=== PATIENT | female | born 1970 | race Caucasian/White ===

== ENCOUNTER 2020-05-31 14:00 | Outpatient (CLI) | payer BC, OTHER, SELFPAY ==
--- NOTE | 2020-05-31 14:15 | USCV_ITS ---
Sarah Monroy Age: 50 Gender: F : 1970 Exam Date: 05/31/2020 14:23 Ordering Phys: Ela Rivera MD ([email or web address]) Technologist: Erlinda Norton Exam Location: [facility] – [place] Indication: AORTIC STENOSIS BP: 114 / 47 HR: 72 Rhythm: Sinus Technical Quality: Adequate MEASUREMENTS (Male / Female) Normal Values 2D ECHO LV Diastolic Diameter PLAX 4.2 cm 4.2 - 5.9 / 3.9 - 5.3 cm LV Systolic Diameter PLAX 2.0 cm LV Chamber Size 4.2 cm IVS Diastolic Thickness 1.2 cm 0.6 - 1.0 / 0.6 - 0.9 cm IVS Systolic Thickness 1.4 cm LVPW Diastolic Thickness 2.0 cm 0.6 - 1.0 / 0.6 - 0.9 cm LVPW Systolic Thickness 2.5 cm RV Chamber Size 3.1 cm LVOT Diameter 2.1 cm LV Ejection Fraction 2D Teich 84.2 % LV Ejection Fraction MOD 2C 56.6 % LV Ejection Fraction 2C AL 55.8 % LA Diameter 4.0 cm LA Width 3.5 cm LA Height 5.0 cm RA Width 3.3 cm RA Height 3.9 cm Aorta at Sinotubular Diameter 2.3 cm M-MODE LV Diastolic Diameter MM 4.9 cm 4.2 - 5.9 / 3.9 - 5.3 cm LV Systolic Diameter MM 2.1 cm LV Ejection Fraction MM Teich 86.9 % IVS Diastolic Thickness MM 0.8 cm 0.6 - 1.0 / 0.6 - 0.9 cm IVS Systolic Thickness MM 1.4 cm LVPW Diastolic Thickness MM 1.3 cm 0.6 - 1.0 / 0.6 - 0.9 cm LVPW Systolic Thickness MM 2.0 cm Aortic Annulus Diameter 2.6 cm LA Ao Ratio MM 2.0 MV E Point Septal Separation 0.6 cm DOPPLER AV Peak Velocity 369.3 cm/s LVOT Peak Velocity 178.3 cm/s AV Area Cont Eq vti 1.6 cm squared AV Area Cont Eq pk 1.6 cm squared MV Area PHT 3.9 cm squared Mitral E to A Ratio 2.1 MV E' Velocity 83.5 cm/s Mitral E to MV E' Ratio 10.5 Mitral E to LV E' Lateral Ratio 8.9 Mitral E to LV E' Septal Ratio 12.8 TR Peak Velocity 259.5 cm/s TR Peak Gradient 26.9 mmHg TV Peak E Velocity 85.0 cm/s PV Peak Velocity 109.0 cm/s RV Acceleration Time 0.2 s RV Ejection Time 0.4 s RV AcT/ET 0.5 FINDINGS Left Ventricle Normal left ventricular cavity size. Normal left ventricular systolic function. Left ventricular ejection fraction is estimated at 70%. No regional wall motion abnormalities. Normal diastolic function. Right Ventricle Normal right ventricular size and systolic function. Right ventricular systolic pressure 24 mmHg. Right Atrium Normal right atrial size. Right atrial pressure estimated at 3 mmHg. Left Atrium Normal left atrial size. Mitral Valve Structurally normal mitral valve. No mitral valve stenosis. Trace mitral valve regurgitation. Aortic Valve Aortic valve not well visualized. Thickened aortic valve. There seems to be some thickening in aortic root in valvular and subvalvular area (possibly related to previous repair). Mild aortic stenosis with peak velocity of 3.4 m/s, peak gradient 45 mmHg, mean gradient 22 mmHg. Mild to moderate aortic valve regurgitation. Tricuspid Valve Structurally normal tricuspid valve. Trace to mild tricuspid valve regurgitation. Pulmonic Valve Pulmonic valve not well visualized. Pericardium No pericardial effusion. Normal-sized inferior vena cava. Aorta Normal-sized aortic root. CONCLUSIONS 1. Normal left ventricular cavity size and systolic function. Left ventricular ejection fraction is estimated at 70%. No regional wall motion abnormalities. Normal diastolic function. 2. There seems to be some thickening in aortic root in valvular and subvalvular area (possibly related to previous repair). Mild aortic stenosis with peak velocity of 3.4 m/s, peak gradient 45 mmHg, mean gradient 22 mmHg. Mild to moderate aortic valve regurgitation. 3. Pulmonary artery pressure estimated at 24 mmHg. 4. When compared to previous echocardiogram dated 10 June 2019, there has been no significant change. Ela Rivera MD (Electronically Signed) Final Date: 02 June 2020 10:10 S
== END 2020-05-31 14:01 | disposition home or self-care (01) ==
LOC: RAD 14:05
PROVIDERS: PCP Electrodiagnostic Medicine; Visit Provider Internal Medicine Cardiovascular Disease
DX: I35.0 Nonrheumatic aortic (valve) stenosis (principal); I35.1 Nonrheumatic aortic (valve) insufficiency
CPT/HCPCS: 93306

== ENCOUNTER 2021-01-08 08:46 | Outpatient (CLI) | payer BC, SELFPAY ==
--- NOTE | 2021-01-08 10:51 | CT_ITS ---
WS: [id number] CT THORACIC SPINE TECHNIQUE: Contrast-enhanced CT of the thoracic spine with coronal and sagittal reformatted images. CLINICAL INFORMATION: POSTLAMINECTOMY SYNDROME COMPARISON: None. DLP: 2413.[address] scans at [facility] use at least one of these dose optimization techniques: automat ed exposure control; mA and/or kV adjustment per patient size (includes targeted exams where dose is matched to clinical indication); or iterative reconstruction. FINDINGS: Fluoroscopic images demonstrate prior postoperative changes pedicle screw fixation with interbody fus ion and interconnecting rods L4-S1. Hardware appears intact. Prior postoperative changes right sacroi liac fusion. Mild lumbar curve convex right. Prior sternotomy. Mild thoracic curve convex left. Mild thoracic kyphosis. No instability on flexion-extension. A few Schmorl's nodes in the mid thoracic spine with minimal chronic anterior wedging. No acute appea ring compression fractures. No high-grade central canal stenosis. Moderate facet arthropathy in the l ower thoracic spine. No significant disc extrusions or protrusions. No high-grade foraminal narrowing . Partially visualized lungs are well aerated. Partially visualized aneurysmal ascending thoracic aorta measuring 4.5 CM. Small esophageal hiatal hernia. Adrenal glands are normal. CT/CT thoracic spine w con [id number] IMPRESSION: 1. Mild thoracic curve. Mild thoracic kyphosis. No acute compression fractures . 2. A few Schmorl's nodes in the mid thoracic spine with minimal chronic anteri or wedging. 3. No high-grade central canal stenosis. 4. No significant disc extrusions or protrusions. 5. Aneurysmal partially visualized ascending thoracic aorta measuring 4.5 CM. This can be further evaluated with CTA chest.
--- NOTE | 2021-01-08 10:51 | IR_ITS ---
WS: [id number] MYELOGRAM LUMBAR AND THORACIC SPINE Fluoroscopic guided lumbar and thoracic myelogram CLINICAL INFORMATION: POSTLAMINECTOMY SYNDROME COMPARISON: None. TECHNIQUE: The procedure, including risks, benefits, and complications, were discussed with the patie nt who agreed to proceed. A timeout was performed to confirm correct patient, procedure, and site. Using sterile technique, the patient was prepped and draped in the usual sterile fashion. After admin istration of local anesthesia using 1% preservative-free lidocaine and using fluoroscopic guidance, a 22-gauge spinal needle was advanced into the subarachnoid space at the L2-3 level. Subsequently 13 c c of Omnipaque 240 was administered into the thecal sac. The needle was removed and hemostasis was ac hieved. Subsequently the table was tilted down and contrast flowed freely into the cervical spine. Sp ot fluoroscopic images were obtained. FLUOROSCOPIC TIME: 2.[address] myelogram report for additional detail. IR/IR myelogram spine thorac/lumb IMPRESSION: 1. Uncomplicated lumbar and thoracic myelogram. 2. Please see CT report for anatomic detail.
--- NOTE | 2021-01-08 10:51 | CT_ITS ---
WS: [id number] CT LUMBAR MYELOGRAM TECHNIQUE: CT lumbar myelogram with coronal and sagittal reformatted images. CLINICAL INFORMATION: POSTLAMINECTOMY SYNDROME COMPARISON: None. DLP: 2230.[address] scans at [facility] use at least one of these dose optimization techniques: automat ed exposure control; mA and/or kV adjustment per patient size (includes targeted exams where dose is matched to clinical indication); or iterative reconstruction. FINDINGS: Mild lumbar curve convex right. Pedicle screw fixation L4-S1 with interbody fusion grafts. Interconne cting rods. Prior postoperative changes right sacroiliac joint bony fusion L1-L2: Mild annular bulging. Spinal canal and foramen are patent. L2-L3: Mild annular bulging with slight effacement of ventral thecal sac and mild central canal steno sis. Slight narrowing of the left subarticular recess with mild left foraminal narrowing. Moderate fa cet arthropathy. L3-L4: Tiny right foraminal protrusion with mild right foraminal narrowing. Spinal canal and foramen are patent. Moderate facet arthropathy. L4-L5: Postoperative changes pedicle screw fixation with interbody fusion. Moderate facet arthropathy . Spinal canal and foramen are patent. L5-S1: Postoperative changes pedicle screw fixation. Interbody fusion. Spinal canal and foramen are p atent. Visualized pelvic bony structures: Normal. Paravertebral soft tissues: Normal. CT/CT lumbar spine w con [id number] IMPRESSION: 1. Pedicle screw fixation L4-S1 with interbody fusion grafts. No evidence of h ardware loosening. 2. Mild annular bulging L2-3 with mild central canal stenosis and slight narro wing of the left subarticular recess. Mild left foraminal narrowing. 3. Small right foraminal protrusion L3-4 with mild right foraminal narrowing. 4. Prior postoperative changes right sacroiliac joint effusion.
[2021-01-08] MEDS: iohexol 240 mg/mL 50 mL Btl INTRA-ARTI (12:25)
== END 2021-01-08 08:47 | disposition home or self-care (01) ==
LOC: RAD 08:50
PROVIDERS: PCP Electrodiagnostic Medicine; Visit Provider Anesthesiology Pain Medicine
DX: M51.44 Schmorl's nodes, thoracic region (principal); M40.294 Other kyphosis, thoracic region; M51.26 Other intervertebral disc displacement, lumbar region; M48.061 Spinal stenosis, lumbar region without neurogenic claudication; M25.48 Effusion, other site
CPT/HCPCS: 62305; 72120; 72129; 72132

== ENCOUNTER 2021-08-16 22:21 | Emergency (ER) | payer BC, SELFPAY ==
[2021-08-16 22:49] VITALS: BP 175/88; PULSE 63; RESP 16; TEMP 36.5; O2SAT 98
--- NOTE | 2021-08-16 23:09 | CTR_ITS ---
PROCEDURE INFORMATION: Exam: CT Abdomen And Pelvis Without Contrast Exam date and time: 08/16/2021 11:09 PM Age: 51 years old Clinical indication: Abdominal pain; Localized; Left lower quadrant (llq); Prior surgery; Surgery type: Partial hysterectomy. Stimulator. Lumbar fusion. Sacral pinning. ; Patient HX: C/O llq and left flank pain. Has been on abx therapy for a persistent UTI for three months. ; Additional info: Left flank and left lower abdom pain, treating UTI for the past 3 months TECHNIQUE: Imaging protocol: Computed tomography of the abdomen and pelvis without contrast. Radiation optimization: All CT scans at this facility use at least one of these dose optimization techniques: automated exposure control; mA and/or kV adjustment per patient size (includes targeted exams where dose is matched to clinical indication); or iterative reconstruction. COMPARISON: CT Abdomen/Pelvis Renal [id number] 03/16/2018 7:54 PM RADIATION DOSE METRICS: Total DLP (mGy-cm): 1791.65 FINDINGS: Tubes, catheters and devices: There is a spinal stimulator in place in the superficial soft tissues of the left flank. Liver: Normal. No mass. Gallbladder and bile ducts: Normal. No calcified stones. No ductal dilation. Pancreas: Normal. No ductal dilation. Spleen: Normal. No splenomegaly. Adrenal glands: Normal. No mass. Kidneys and ureters: Normal. No hydronephrosis. Stomach and bowel: Unremarkable. No obstruction. No mucosal thickening. Appendix: No evidence of appendicitis. Intraperitoneal space: Unremarkable. No free air. No significant fluid collection. Vasculature: Unremarkable. No abdominal aortic aneurysm. Lymph nodes: Unremarkable. No enlarged lymph nodes. Urinary bladder: The bladder is decompressed, however, the wall appears slightly thickened and indistinct consistent with probable cystitis. Reproductive: The patient has had a hysterectomy. There is a 2.8 cm cyst in the right ovary. Bones/joints: There is fusion hardware at L4 through S1 and transfixing the right SI joint which appears stable. Soft tissues: Unremarkable. CT/CT kidney stone [id number] IMPRESSION: Bladder wall thickening may be due to decompression versus cystitis. No evidence of ascending infection. Status post hysterectomy. Right ovarian cyst. Surgical fusion in the lumbar spine and pelvis.
--- NOTE | 2021-08-16 23:11 | W.ED.FEMALGU ---
HPI - Female Genitourinary General: Chief complaint: Urogenital-Female Stated complaint: possible uti, pain in lower lt abd. Time Seen by Provider: 08/16/21 22:25 History of Present Illness: HPI Narrative: Patient is a 51-year-old female comes to the ED with left flank and left sided abdominal pain. Patient says for the past 3 months she has been dealing with a UTI and has been on 3 different antibiotics to treat it. She is currently taking nitrofurantoin and started current antibiotics 6 days ago. She was having symptoms of dysuria and increased urine frequency and left flank and left lower sided abdominal pain. She currently rates her pain an 8 out of 10. But since she switched to nitrofurantoin the dysuria has improved. She is still having increased urine frequency and pain in her left flank and left side of abdomen is continued to get worse. Over the past 6 days she says her abdominal pain and left flank pain has gotten worse. Today it was significant enough for her to come here to the ED to be evaluated. Denies any current nauseous, vomiting, fever, chills. Patient does endorse some diarrhea currently. Denies any blood in stool. Patient says she has been referred to a urologist by her primary care doctor and is scheduled to see them in early August. Associated symptoms: Reports abdominal pain (Left side of abdomen); Deny short of breath, fevers/chills, headache(s), nausea, vaginal bleeding or vaginal discharge Review of Systems Const: Denies: fever(s), chills or fatigue Eyes: Denies: change in vision or eye discomfort ENMT: Denies: throat pain, odynophagia, nasal discharge or nasal congestion Card: Denies: chest pain, palpitations, edema, swelling of feet/ankles, dyspnea on exertion or orthopnea Resp: Denies: dyspnea, productive cough or non-productive cough GI: Reports: abdominal pain (Left side of abdomen); Denies: nausea, vomiting, diarrhea, constipation or hematochezia : Reports: flank pain (Left side) and urinary frequency; Denies: dysuria, hematuria, genital lesions, vaginal bleeding or vaginal discharge Musc: Denies: neck pain, back pain or extremity swelling Skin/Breast: Denies: rash or new lesions Neuro: Denies: headache(s), numbness in extremities or weakness in extremities PFSH ED PFSH: Medical History Aortic stenosis Congenital heart disease Hx of aortic valve disorder Surgical History S/P lumbar fusion Family History Other CAD (coronary artery disease) CHF (congestive heart failure) Diabetes Hypertension Stroke Social History Smoking and tobacco status: never smoked Alcohol intake: current Alcohol intake frequency: other Physical Exam Const: COMMON NORMALS: no acute distress, patient oriented x3, healthy appearing and alert GENERAL APPEARANCE: cooperative and comfortable HENMT: COMMON NORMALS: normocephalic HEAD & SCALP: normocephalic MOUTH: Normal oral and palatal mucosa present THROAT: posterior oropharynx normal and uvula midline Eye: COMMON NORMALS: Equal, round and reactive pupils present PUPIL: Yes Equal, round and reactive pupils present Neck/C-Spine: COMMON NORMALS: supple GENERAL: Yes normal visual inspection Resp: COMMON NORMALS: normal respiratory effort, No retractions, No use of accessory muscles and clear to auscultation bilaterally AUSCULTATION: clear to auscultation bilaterally Cardio: COMMON NORMALS: regular rate, regular rhythm, S1 normal heart sound present, S2 normal heart sound present, No gallops present (Cardio), No clicks present (Cardio), No murmurs present (Cardio) and Peripheral pulses 2+ throughout RATE: regular rate RHYTHM: regular rhythm HEART SOUNDS: S1 normal heart sound present and S2 normal heart sound present PERIPHERAL PULSES: Peripheral pulses 2+ throughout GI: COMMON NORMALS: Normal to inspection, nondistended, normoactive bowel sounds present, Soft to palpation and no masses PALPATION: Yes Soft to palpation, Yes Tenderness to palpation present (GI) Details: LLQ and Yes Bladder palpation abnormal : BLADDER/KIDNEY EXAM: Yes Bladder palpation abnormal Bladder abnormal details: tender and Yes CVA tenderness on the left SPECULUM EXAM - VAGINA: No vaginal bleeding OB/EXTERNAL & SPECULUM: No vaginal bleeding Back/Pelvis: GENERAL BACK: Yes CVA tenderness Extremity: COMMON NORMALS: normal to inspection Neuro: COMMON NORMALS: patient oriented x3 and moves all extremities SENSORIUM/ORIENTATION: Yes alert Skin: GENERAL SKIN EXAM: dry skin Course Vital Signs: Vital signs: Vital Signs Temperature 97.7 F 08/16/21 22:49 Pulse Rate 88 08/16/21 23:52 Respiratory Rate 20 H 08/16/21 23:52 Blood Pressure 168/70 08/16/21 23:52 Pulse Oximetry 98 08/16/21 23:52 MDM - Female MDM Narrative: Medical decision making narrative: Patient is a 51-year-old female comes to the ED with left flank and left lower abdomen pain. She is currently being treated for a UTI that she has had for the past 3 months has been on a couple different antibiotics. She is now taking nitrofurantoin and started that 6 days ago and her symptoms of dysuria improved but she still having some abdominal and flank pain along with increased urine frequency. Denies any fevers, chills, nausea/vomiting. vitals are stable. Patient does not appear in any acute distress or pain and is sitting comfortably on exam chair when entered the room. She does have a little bit of left CVA tenderness and some bladder and left lower quadrant tenderness to palpation. CBC, CMP were unremarkable. UA did not show any signs of any infection but did note a little bit of blood. CT kidney stone showed possible bladder wall thickening likely due to cystitis. There is no signs of any ascending infection. Patient was treated with UTI cystitis and she was told to continue taking her nitrofurantoin and I gave her a dose of IM Rocephin while here in the ED. She was discharged home and told to follow-up with her PCP in 7 to 10 days reevaluation. Continue taking nitrofurantoin. She was given a prescription for #8 hydrocodone 5-325 mg tablets to help with any acute pain. Return to ED precautions given. She already has an appointment set up with a urologist this coming August for further evaluation of her 3 months of UTI symptoms. Lab Data: Attestation: I reviewed the patient's lab results. Labs: Lab Results 08/16/21 08/16/21 08/16/21 23:00 23:20 23:20 WBC 7.5 10^3/uL 10^3/ uL (4.0-10.0) RBC 4.29 10^6/uL 10^6 /uL (4.1-5.3) Hgb 12.9 g/dL g/dL (11.5-15.3) Hct 40.5 % % (37.0-47.0) MCV 94.4 fl fl (81-99) MCH 30.1 pg pg (28.0-34.0) MCHC 31.9 g/dL g/dL (30.0-36.0) RDW 13.0 % % (12.1-15.1) Plt Count 271 10^3/cmm 10^3 /cmm (130-400) MPV 10.8 fL H fL (7.4-10.4) Neut % (Auto) 49.1 % % Lymph % (Auto) 42.3 % % [place] % (Auto) 5.9 % % Eos % (Auto) 2.3 % % Baso % (Auto) 0.1 % % Neut # (Auto) 3.68 10^3/uL 10^3 /uL (1.8-7.7) Lymph # (Auto) 3.2 10^3/uL 10^3/ uL (0.8-4.8) [place] # (Auto) 0.4 10^3/uL 10^3/ uL (0.2-0.9) Eos # (Auto) 0.2 10^3/uL 10^3/ uL (0.0-0.8) Baso # (Auto) 0.0 10^3/uL 10^3/ uL (0.0-0.1) Nucleated RBC % (a uto) 0 % % Nucleated RBCs # 0.0 /100WBC /100W BC Sodium 141 mmol/L mmol/L (136-145) Potassium 3.7 mmol/L mmol/L (3.5-5.1) Chloride 104 mmol/L mmol/L (98-107) Carbon Dioxide 23 mmol/L mmol/L (22-29) Anion Gap 17.7 (5-19) BUN 11 mg/dL mg/dL (6-20) Creatinine 0.6 mg/dL mg/dL (0.5-0.9) GFR Calculation 105.8 mL/min mL/m in (90-130) Glucose 104 mg/dL mg/dL (65-115) Calculated Osmolal ity 292 mOsm/kg mOsm/ kg (285-295) Calcium 9.0 mg/dL mg/dL (8.5-10.5) Total Bilirubin 0.2 mg/dL mg/dL (0.15-1.2) AST 14 U/L U/L (0-32) ALT 17 U/L U/L (0-33) Alkaline Phosphata se 79 IU/L IU/L (35-105) Total Protein 7.4 g/dL g/dL (6.6-8.7) Albumin 4.5 g/dL g/dL (3.5-5.2) Globulin 2.9 g/dL g/dL (1.3-4.6) Lipase 33 U/L U/L (13-60) Urine Color Yellow (Yellow) Urine Appearance Clear (CLEAR) Urine pH 5 (5-7) Ur Specific Gravit y 1.020 (1.005-1.030) Urine Protein Neg (Negative) Urine Glucose (UA) Norm (Normal) Urine Ketones Negative (Negative) Urine Blood 2+ H (Negative) Urine Nitrate Negative (Negative) Urine Bilirubin Neg (Negative) Urine Urobilinogen Neg mg/dL mg/dL (Negative) Ur Leukocyte Thea ase Negative (Negative) Urine RBC 0-4 /hpf H /hpf (0-2) Urine WBC Rare /hpf /hpf (0-5) Ur Squamous Epith Cells 25-40 /hpf H /hpf (0-5) Amorphous Sediment Not Reportable Urine Bacteria 1+ /hpf H /hpf (NONE) Imaging Data: CT Abd/Pel: Attestation: I personally reviewed and interpreted this imaging study as follows: Radiologist's impression: [address] [address] [address] Scan Report Signed Patient: Sarah Monroy Unit #: [id number] : 1970 Age/Sex: 51 / F ADM Date: 08/16/21 Loc: ER Room/Bed: Attending Dr: Ordering Provider/Ordering MD: Porfirio Gates Date of Service: 08/16/21 Procedure(s): CT kidney stone [id number] Accession Number(s): [id number] Report Number: [id number] PROCEDURE INFORMATION: Exam: CT Abdomen And Pelvis Without Contrast Exam date and time: 08/16/2021 11:09 PM Age: 51 years old Clinical indication: Abdominal pain; Localized; Left lower quadrant (llq); Prior surgery; Surgery type: Partial hysterectomy. Stimulator. Lumbar fusion. Sacral pinning. ; Patient HX: C/O llq and left flank pain. Has been on abx therapy for a persistent UTI for three months. ; Additional info: Left flank and left lower abdom pain, treating UTI for the past 3 months TECHNIQUE: Imaging protocol: Computed tomography of the abdomen and pelvis without contrast. Radiation optimization: All CT scans at this facility use at least one of these dose optimization techniques: automated exposure control; mA and/or kV adjustment per patient size (includes targeted exams where dose is matched to clinical indication); or iterative reconstruction. COMPARISON: CT Abdomen/Pelvis Renal [id number] 03/16/2018 7:54 PM RADIATION DOSE METRICS: Total DLP (mGy-cm): 1791.65 FINDINGS: Tubes, catheters and devices: There is a spinal stimulator in place in the superficial soft tissues of the left flank. Liver: Normal. No mass. Gallbladder and bile ducts: Normal. No calcified stones. No ductal dilation. Pancreas: Normal. No ductal dilation. Spleen: Normal. No splenomegaly. Adrenal glands: Normal. No mass. Kidneys and ureters: Normal. No hydronephrosis. Stomach and bowel: Unremarkable. No obstruction. No mucosal thickening. Appendix: No evidence of appendicitis. Intraperitoneal space: Unremarkable. No free air. No significant fluid collection. Vasculature: Unremarkable. No abdominal aortic aneurysm. Lymph nodes: Unremarkable. No enlarged lymph nodes. Urinary bladder: The bladder is decompressed, however, the wall appears slightly thickened and indistinct consistent with probable cystitis. Reproductive: The patient has had a hysterectomy. There is a 2.8 cm cyst in the right ovary. Bones/joints: There is fusion hardware at L4 through S1 and transfixing the right SI joint which appears stable. Soft tissues: Unremarkable. CT/CT kidney stone [id number] IMPRESSION: Bladder wall thickening may be due to decompression versus cystitis. No evidence of ascending infection. Status post hysterectomy. Right ovarian cyst. Surgical fusion in the lumbar spine and pelvis. Dictated By: Michael Zamora MD Signed By: Michael Zamora MD Signed Date/Time: 08/17/21 002 DD/ 538 Discharge Plan Discharge Patient Disposition: Home Clinical Impression: UTI (urinary tract infection) Qualifiers: Urinary tract infection type: acute cystitis Hematuria presence: with hematuria Qualified Code(s): N30.01 - Acute cystitis with hematuria Condition: Stable Prescriptions: No Action atorvastatin 20 mg tablet 20 mg PO DAILY RF: 0 lidocaine HCl INTRADERMA RF: 0 ibuprofen 800 mg tablet 800 mg PO Q8H RF: 0 celecoxib [Celebrex] 200 mg capsule 200 mg PO DAILY RF: 0 baclofen 5 mg tablet 5 mg PO DAILY PRNRF: 0 Discharge Orders: Discharge ED (Routine); Ordered 08/17/21 Ordered By: Porfirio Gates Referrals: Dayton Kennedy DO [Primary Care Provider] - Discharge Diet: Regular Discharge Activity: Resume usual activity Patient Instructions: Urinary Tract Infection in Women (DC), Opioid Safety Activity Restrictions/Additional Instructions: Follow-up with medical provider as directed in the next 7 to 10 days for reevaluation. Take medications as prescribed. Continue taking your nitrofurantoin as prescribed for UTI. return to the ER or your medical provider if condition worsens. Please read and understand discharge instructions. Thank you for choosing [facility] for your healthcare needs today. Please realize this is an emergency room and that we are providing you with a medical screening exam and this may not be complete and all inclusive of all the testing and or work up that you may need to determine your ailment or severity of your illness. It is very important that you follow up as instructed or that you return to the Emergency Department should you have concerns or if your condition changes or worsens in any way. Stand Alone Forms: Work/School Release Coding Level of Care Code ED Roaster Supervisor for Josie Carias Exam Comprehensive
[2021-08-16 23:34] LABS: Basophils % 0.1 %; Eosinophils # 0.2 10^3/uL (0.0-0.8); Eosinophils % 2.3 %; Hematocrit 40.5 % (37.0-47.0); Hemoglobin 12.9 g/dL (11.5-15.3); Lymphocytes # 3.2 10^3/uL (0.8-4.8); Lymphocytes % 42.3 %; Mean Corpuscular HGB Conc 31.9 g/dL (30.0-36.0); Mean Corpuscular Hemoglobin 30.1 pg (28.0-34.0); Mean Corpuscular Volume 94.4 fl (81-99); Mean Platelet Volume 10.8 fL (7.4-10.4); Monocytes # 0.4 10^3/uL (0.2-0.9); Monocytes % 5.9 %; Neutrophils # 3.68 10^3/uL (1.8-7.7); Neutrophils % 49.1 %; Nucleated Red Blood Cells % 0 %; Platelet Count 271 10^3/cmm (130-400); Red Blood Count 4.29 10^6/uL (4.1-5.3); White Blood Count 7.5 10^3/uL (4.0-10.0)
[2021-08-16 23:52] VITALS: BP 168/70; PULSE 88; RESP 20; O2SAT 98
[2021-08-16 23:57] LABS: Alanine Aminotransferase 17 U/L (0-33); Albumin Level 4.5 g/dL (3.5-5.2); Alkaline Phosphatase 79 IU/L (35-105); Anion Gap 17.7 (5-19); Aspartate Amino Transferase 14 U/L (0-32); Blood Urea Nitrogen 11 mg/dL (6-20); Carbon Dioxide 23 mmol/L (22-29); Chloride 104 mmol/L (98-107); Globulin 2.9 g/dL (1.3-4.6); Glomerular Filtration Rate 105.8 mL/min (90-130); Glucose 104 mg/dL (65-115); Lipase 33 U/L (13-60); Osmolality Calculated 292 mOsm/kg (285-295); Potassium 3.7 mmol/L (3.5-5.1); Sodium 141 mmol/L (136-145); Total Bilirubin 0.2 mg/dL (0.15-1.2); Total Protein 7.4 g/dL (6.6-8.7)
[2021-08-17 00:01] LABS: Urine Appearance Clear (CLEAR); Urine Color Yellow (Yellow); pH Urine 5 (5-7)
[2021-08-17 00:02] LABS: Add Urine Culture? No; Add Urine Microscopic? YES; Bacteria Urine 1+ /hpf; Bilirubin Urine Neg (Negative); Blood Urine 2+ (Negative); Glucose Urine UA Norm (Normal); Ketones Urine Negative (Negative); Leukocyte Esterase Urine Negative (Negative); Nitrate Urine Negative (Negative); Protein Urine Neg (Negative); RBC Urine 0-4 /hpf (0-2); Squamous Epithelial Cell Urine 25-40 /hpf (0-5); Urobilinogen Urine Neg (Negative); WBC Urine RARE /hpf (0-5)
[2021-08-17] MEDS: cefTRIAXone 1,000 MG in lidocaine 1% 2.1 ML 2.1 MG IM (01:04)
[2021-08-17] MEDS: HYDROcodone-acetaminophen 7.5-325 mg Tablet 1 TAB PO (01:07)
[2021-08-17 01:19] VITALS: BP 156/92; PULSE 84; RESP 18; O2SAT 98
== END 2021-08-17 01:05 | disposition home or self-care (01) ==
PROVIDERS: Emergency Medicine; Emergency Provider Physician Assistant; PCP Electrodiagnostic Medicine
DX: N30.01 Acute cystitis with hematuria (principal)
CPT/HCPCS: 74176; 80053; 81001; 81003; 83690; 85025; 96372; 99283; J0696

== ENCOUNTER → 2021-09-05 10:49 | Outpatient (BNVA) | payer BC, SELFPAY | PROVIDERS: PCP Electrodiagnostic Medicine; Visit Provider Nurse Practitioner Family | DX: N39.0 Urinary tract infection, site not specified (principal) | CPT/HCPCS: 81003; 87086 ==

== ENCOUNTER → 2021-11-21 14:45 | Outpatient (BNVA) | payer BC, SELFPAY | PROVIDERS: PCP Electrodiagnostic Medicine; Visit Provider Nurse Practitioner Family | DX: N39.0 Urinary tract infection, site not specified (principal); R33.9 Retention of urine, unspecified | CPT/HCPCS: 81003 ==

== ENCOUNTER → 2022-01-10 13:09 | Outpatient (BNVA) | payer BC, SELFPAY | PROVIDERS: PCP Electrodiagnostic Medicine; Visit Provider Nurse Practitioner Family | DX: N39.0 Urinary tract infection, site not specified (principal) | CPT/HCPCS: 81003 ==

== ENCOUNTER → 2022-07-04 09:22 | Outpatient (BNVA) | payer BC, SELFPAY | PROVIDERS: PCP Electrodiagnostic Medicine; Visit Provider Urology | DX: N39.0 Urinary tract infection, site not specified (principal) | CPT/HCPCS: 81003 ==

== ENCOUNTER 2022-08-23 09:54 | Outpatient (CLI) | payer BC, SELFPAY ==
--- NOTE | 2022-08-23 10:15 | USCV_ITS ---
Sarah Monroy Age: 52 Gender: F : 1970 Exam Date: 08/23/2022 10:18 Ordering Phys: Ela Rivera MD ([email or web address]) Technologist: Ismael Fowler [place] [facility] [place]: hx of bicuspid ao repair aortic insuff BP: 130 / 75 HR: 76 Rhythm: Sinus Technical Quality: MEASUREMENTS (Male / Female) Normal Values 2D ECHO LV Diastolic Diameter PLAX 4.2 cm 4.2 - 5.9 / 3.9 - 5.3 cm LV Systolic Diameter PLAX 2.0 cm IVS Diastolic Thickness 1.3 cm 0.6 - 1.0 / 0.6 - 0.9 cm IVS Systolic Thickness 1.6 cm LVPW Diastolic Thickness 1.2 cm 0.6 - 1.0 / 0.6 - 0.9 cm LVPW Systolic Thickness 1.6 cm LVOT Diameter 2.6 cm LV Ejection Fraction 2D Teich 83.6 % LV Ejection Fraction MOD 2C 75.9 % LV Ejection Fraction 2C AL 76.1 % LA Diameter 4.2 cm M-MODE Aortic Annulus Diameter 3.3 cm LA Ao Ratio MM 1.4 MV E Point Septal Separation 0.7 cm DOPPLER AV Peak Velocity 366.8 cm/s LVOT Peak Velocity 149.0 cm/s AV Area Cont Eq vti 1.9 cm squared AV Area Cont Eq pk 2.1 cm squared MV Area PHT 5.0 cm squared Mitral E to A Ratio 0.9 MV E' Velocity 50.0 cm/s Mitral E to MV E' Ratio 8.0 Mitral E to LV E' Lateral Ratio 6.8 Mitral E to LV E' Septal Ratio 9.8 TR Peak Velocity 263.0 cm/s TR Peak Gradient 27.7 mmHg TV Peak E Velocity 125.0 cm/s Right Atrial Pressure 3.0 mmHg Pulmonary Artery Systolic Pressu 30.7 mmHg PV Peak Velocity 91.0 cm/s FINDINGS Left Ventricle Normal left ventricular size, systolic function and increased wall thickness, with no regional wall motion abnormalities. Left ventricular ejection fraction is estimated at 55 %. Normal diastolic function. Right Ventricle Normal right ventricular size and systolic function. Right Atrium Normal right atrial size. Left Atrium Mildly increased left atrial size. Mitral Valve Structurally normal mitral valve. No mitral valve stenosis. No mitral valve regurgitation. Aortic Valve Aortic valve not well visualized. There seems to be some thickening in valvular and perivalvular apparatus (related to prior repair). Mild aortic valve stenosis, peak velocity 3.5 m/s, peak gradient 50 mm Hg, mean gradient 26 mmHg, SRIKANTH 1.8 cm squared. [id number] aortic valve regurgitation. Tricuspid Valve Structurally normal tricuspid valve. No tricuspid valve stenosis. Trace tricuspid valve regurgitation. Pulmonic Valve Structurally normal pulmonic valve. No pulmonary valve stenosis. No pulmonary valve regurgitation. Pericardium No pericardial effusion. Aorta Normal size aortic root and proximal ascending aorta. IVC Inferior vena cava not visualized. CONCLUSIONS 1. Normal left ventricular size, systolic function and increased wall thickness, with no regional wall motion abnormalities. Left ventricular ejection fraction is estimated at 60 %. Normal diastolic function. 2. There seems to be some thickening in valvular and perivalvular apparatus (related to prior repair). Mild aortic valve stenosis, peak velocity 3.5 m/s, peak gradient 50 mm Hg, mean gradient 26 mmHg, SRIKANTH 1.8 cm squared. [id number] aortic valve regurgitation. 3. When compared to study dated 05/31/2020, there may not have been any significant change. Ela Rivera MD (Electronically Signed) Final Date: 25 August 2022 07:53 S
== END 2022-08-23 09:55 | disposition home or self-care (01) ==
PROVIDERS: PCP Electrodiagnostic Medicine; Visit Provider Internal Medicine Cardiovascular Disease
DX: I35.0 Nonrheumatic aortic (valve) stenosis (principal); I35.1 Nonrheumatic aortic (valve) insufficiency; Q24.9 Congenital malformation of heart, unspecified; R07.9 Chest pain, unspecified
CPT/HCPCS: 93306

== ENCOUNTER 2023-02-12 08:15 | Outpatient (CLI) | payer BC, SELFPAY ==
--- NOTE | 2023-02-12 08:32 | MM_ITS ---
WS: [email or web address] SCREENING DIGITAL BREAST TOMOSYNTHESIS MAMMOGRAM WITH CAD HISTORY: SCREENING COMPARISON: 05/07/2019 and 12/27/2016 Bilateral CC and MLO with tomosynthesis and synthetic mammography submitted. Computer aided detection analyzed. Breast composition: There are scattered areas of fibroglandular density. Incompletely visualized asym metry in the lateral posterior RIGHT breast on the CC projection only. Partially visualized asymmetry measures 8 mm. No corresponding abnormality on the lateral projection. Benign RIGHT breast calcifica tion. MM/[place] [id number] IMPRESSION: BI-RADS: 0-Incomplete: Need additional imaging evaluation FOLLOW UP: Need Additional Imaging RIGHT breast: Spot compression views (exaggerated lateral CC ). True ML. Ultras ound to follow if abnormality persists.
== END 2023-02-12 08:16 | disposition home or self-care (01) ==
PROVIDERS: PCP Electrodiagnostic Medicine; Visit Provider Electrodiagnostic Medicine
DX: Z12.31 Encounter for screening mammogram for malignant neoplasm of breast (principal); N64.89 Other specified disorders of breast
CPT/HCPCS: 77063; 77067

== ENCOUNTER 2023-04-08 09:46 | Outpatient (CLI) | payer BC, SELFPAY ==
--- NOTE | 2023-04-08 10:06 | MM_ITS ---
WS: [email or web address] ADDITIONAL VIEWS RIGHT MAMMOGRAM WITH DIGITAL BREAST TOMOSYNTHESIS. HISTORY: ABNORMAL MAMMO, asymmetry seen on the right CC projection from 02/12/2023. COMPARISON: 02/12/2023, 05/07/2019 Spot compression views right breast in exaggerated CC, MLO projections and true ML submitted with dig ital breast tomosynthesis and SM. The asymmetry described on the prior screening examination of 02/12/2023 has resolved with additional imaging. This is most consistent with superimposed fibroglandular densities. IMPRESSION: MM/[place] [id number] BI-RADS: 2-Benign FOLLOW UP: 1 Year Follow-up Return to annual screening mammography.
== END 2023-04-08 09:47 | disposition home or self-care (01) ==
PROVIDERS: PCP Electrodiagnostic Medicine; Visit Provider Electrodiagnostic Medicine
DX: R92.8 Other abnormal and inconclusive findings on diagnostic imaging of breast (principal)
CPT/HCPCS: 77061; G0279

== ENCOUNTER 2023-08-20 08:33 | Outpatient (CLI) | payer BC, SELFPAY ==
--- NOTE | 2023-08-20 08:40 | USCV_ITS ---
Sarah Monroy Age: 53 Gender: F : 1970 Exam Date: 08/20/2023 08:59 Ordering Phys: Dayton Kennedy DO Technologist: Exam Location: [facility] – [place] Indication: as non rhematic BP: 110 / 60 HR: 66 Rhythm: Sinus Technical Quality: Adequate MEASUREMENTS (Male / Female) Normal Values 2D ECHO LV Diastolic Diameter PLAX 4.4 cm 4.2 - 5.9 / 3.9 - 5.3 cm LV Systolic Diameter PLAX 2.8 cm IVS Diastolic Thickness 1.2 cm 0.6 - 1.0 / 0.6 - 0.9 cm IVS Systolic Thickness 1.7 cm LVPW Diastolic Thickness 1.3 cm 0.6 - 1.0 / 0.6 - 0.9 cm LVPW Systolic Thickness 1.8 cm LVOT Diameter 2.1 cm LV Ejection Fraction 2D Teich 67.9 % LV Ejection Fraction MOD 2C 72.3 % LV Ejection Fraction 2C AL 71.5 % LA Diameter 4.2 cm IVC Diameter 1.4 cm M-MODE Aortic Annulus Diameter 3.1 cm LA Ao Ratio MM 1.5 DOPPLER AV Peak Velocity 371.0 cm/s LVOT Peak Velocity 112.0 cm/s AV Area Cont Eq vti 0.9 cm squared AV Area Cont Eq pk 1.0 cm squared MV Area PHT 3.1 cm squared Mitral E to A Ratio 1.2 MV E' Velocity 49.0 cm/s Mitral E to MV E' Ratio 9.2 Mitral E to LV E' Lateral Ratio 8.5 Mitral E to LV E' Septal Ratio 10.1 TR Peak Velocity 224.7 cm/s TR Peak Gradient 20.2 mmHg TV Peak E Velocity 108.0 cm/s Right Atrial Pressure 3.0 mmHg Pulmonary Artery Systolic Pressu 23.2 mmHg RV Acceleration Time 0.2 s FINDINGS Left Ventricle Left ventricle is normal size. LV systolic function is normal with EF of 55 to 60%. No regional wall motion abnormalities are seen. Right Ventricle Normal in size and function Right Atrium Normal in size Left Atrium Normal in size Mitral Valve Structurally normal mitral valve. Aortic Valve Aortic valve is thickened and calcified. Moderate to severe aortic stenosis with aortic valve area of 0.91 cm2 and mean gradient across aortic valve of 30 mmHg. Mild aortic regurgitation. Tricuspid Valve Mild tricuspid regurgitation. Pulmonary artery systolic pressure is normal. Pulmonic Valve Trace pulmonic regurgitation. Pericardium Normal Aorta Normal in size IVC Appears to be normal CONCLUSIONS LV systolic function is normal with EF 55 to 60%. Aortic valve is thickened and calcified. Moderate to severe aortic stenosis. Mild aortic regurgitation Mild tricuspid regurgitation Trace pulmonic regurgitation Compared to prior echocardiogram from 2021, aortic stenosis has worsened significantly and now has moderate to severe aortic stenosis Bala Valdez MD (Electronically Signed) Final Date: 28 August 2023 17:20 S
== END 2023-08-20 08:34 | disposition home or self-care (01) ==
LOC: RAD 08:35
PROVIDERS: PCP Electrodiagnostic Medicine; Visit Provider Electrodiagnostic Medicine
DX: I35.0 Nonrheumatic aortic (valve) stenosis (principal); I35.1 Nonrheumatic aortic (valve) insufficiency; I36.1 Nonrheumatic tricuspid (valve) insufficiency
CPT/HCPCS: 93306

== ENCOUNTER 2024-08-21 15:19 | Inpatient (IN) | payer BC, SELFPAY ==
[2024-08-21 15:31] VITALS: BP 145/66; PULSE 79; RESP 18; TEMP 36.7; O2SAT 100; BMI 36.5
[2024-08-21 15:55] LABS: Basophils % 0.1 %; Eosinophils # 0.1 10^3/uL (0.0-0.8); Eosinophils % 1.3 %; Hematocrit 38.6 % (36-47); Lymphocytes # 1.7 10^3/uL (0.8-4.8); Lymphocytes % 16.1 %; Mean Corpuscular HGB Conc 31.6 g/dL (30-55); Mean Corpuscular Hemoglobin 29.1 pg (27-33); Mean Corpuscular Volume 92.1 fl (85-98); Mean Platelet Volume 10.7 fL (7.4-10.4); Monocytes # 0.6 10^3/uL (0.2-0.9); Monocytes % 5.8 %; Neutrophils # 7.86 10^3/uL (1.8-7.7); Neutrophils % 76.5 %; Nucleated Red Blood Cells % 0 %; Platelet Count 310 10^3/cmm (157-399); Red Blood Count 4.19 10^6/uL (3.85-5.65); Red Cell Distribution Width 13.5 % (12.1-15.1); White Blood Count 10.27 10^3/uL (3.29-11.43)
[2024-08-21 16:17] LABS: Alanine Aminotransferase 14 U/L (0-33); Albumin Level 4.1 g/dL (3.5-5.2); Alkaline Phosphatase 88 U/L (35-105); Anion Gap 13.1 (5-19); Aspartate Amino Transferase 22 U/L (0-32); Blood Urea Nitrogen 20 mg/dL (6-20); Calcium 9.5 mg/dL (8.5-10.5); Carbon Dioxide 26 mmol/L (22-29); Chloride 104 mmol/L (98-107); Creatinine Clr Calc Pharmacy 81.3807; Globulin 3.1 g/dL (1.3-4.6); Glucose 138 mg/dL (65-115); Lipase 26 U/L (13-60); Osmolality Calculated 295 mOsm/kg (285-295); Potassium 3.1 mmol/L (3.5-5.1); Sodium 140 mmol/L (136-145); Total Bilirubin 0.2 mg/dL (0.15-1.2); Total Protein 7.2 g/dL (6.6-8.7)
[2024-08-21 16:37] LABS: Bilirubin Urine Negative (Negative); Blood Urine 1+ (Negative); Glucose Urine UA Negative (Normal); Ketones Urine Trace (Negative); Leukocyte Esterase Urine 2+ (Negative); Nitrate Urine Negative (Negative); Protein Urine Negative (Negative); Specific Gravity, Urine 1.027 (1.005-1.030); Urine Appearance Clear (CLEAR); Urine Color Yellow (Yellow)
--- NOTE | 2024-08-21 16:41 | ED_ITS ---
Documented by User: Devang Whitaker, 08/23/24 14:41 HPI - Nausea/Vomiting/Diarrhea 2 General: Chief complaint: Nausea/Vomiting/Diarrhea Stated complaint: abd pain Time Seen by Provider: 08/21/24 16:40 History of Present Illness: 54-year-old female who presents emergenc y room complaining of nausea vomiting and diarrhea cramping sedation noticed some blood in her stools her symptoms began 2 days ago. She is on Coumadin for a mechanical mitral valve. She had her INR checked earlier this month and was within therapeutic range and they made no adjustments. She denies any dysuria urgency or frequency no chest pain or shortness of breath no cough or headache or myalgias Associated nausea: Yes Associated symtoms: Reports nausea; Denies chest pain or dysuria Related Data Home Medications Medication Instructions Recorded Confirmed celecoxib 200 mg capsule (Celebrex) 200 mg PO DAILY 05/04/20 08/21/24 baclofen 5 mg tablet 5 mg PO 3XD PRN Muscle Spasm 02/07/21 08/21/24 ibuprofen 800 mg tablet 800 mg PO Q8H PRN Pain 09/05/21 08/21/24 tizanidine 2 mg capsule 2 mg PO DAILY PRN Muscle Spasm 09/05/21 08/21/24 garlic 500 mg capsule 500 mg PO DAILY 07/04/22 08/21/24 lidocaine 5 % topical patch 1 patch topical DAILY 07/04/22 08/21/24 alprazolam 0.5 mg tablet 0.5 mg PO BEDTIME PRN Anxiety 08/21/24 08/21/24 hydrocodone 10 mg-acetaminophen 1 tab PO Q12H PRN Pain 08/21/24 08/21/24 325 mg tablet metoprolol tartrate 25 mg tablet 12.5 mg PO BID 08/21/24 08/21/24 montelukast 10 mg tablet 10 mg PO DAILY 08/21/24 08/21/24 warfarin 5 mg tablet 5 mg PO BID 08/21/24 08/21/24 zonisamide 100 mg capsule 200 mg PO BEDTIME 08/21/24 08/21/24 Allergies Allergy/AdvReac Type Severity Reaction Status Date / Time atorvastatin [From Lipitor] Allergy myalgias Verified 08/21/24 21:16 fexofenadine Allergy ADR-Anxiety Verified 12/28/24 21:16 gabapentin Allergy myalgias Verified 08/21/24 21:16 oxycodone Allergy ITCHING Verified 08/21/24 15:33 AND NERVOUSNESS tramadol Allergy Unknown Verified 08/21/24 15:33 Review of Systems 2 Const: Denies: fever(s) or chills Card: Denies: chest pain Resp: Denies: dyspnea GI: Reports: abdominal pain, nausea, vomiting, diarrhea and change in stool character : Denies: dysuria, urinary frequency or urinary urgency Musc: Denies: neck pain or back pain Skin/Breast: Denies: rash PFSH ED 2 PFSH: Medical History Chronic back pain s/p back surgeries 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 Family History Father , AT 93 Heart attack Mother , AT AGE 57 Diabetes Heart attack Other CAD (coronary artery disease) Congestive heart failure (CHF) Hypertension Stroke Social History Smoking and tobacco/nicotine status: never used tobacco/nicotine Alcohol intake: never Substance/Drug Use: never Marital status: Current occupational status: employed Physical Exam 2 Const: GENERAL APPEARANCE: cooperative ORIENTATION/CONSCIOUSNESS: Yes awake, Yes oriented to person, Yes oriented to place and Yes oriented to time HENMT: COMMON NORMALS: normocephalic, atraumatic and hearing grossly normal bilaterally HEAD & SCALP: normocephalic and atraumatic Resp: COMMON NORMALS: normal respiratory effort, No retractions, No use of accessory muscles and clear to auscultation bilaterally AUSCULTATION: clear to auscultation bilaterally Cardio: COMMON NORMALS: regular rate, regular rhythm and No murmurs present (Cardio) RATE: regular rate RHYTHM: regular rhythm GI: COMMON NORMALS: Soft to palpation and No hepatosplenomegaly present A USCULTATION: Yes normoactive bowel sounds PALPATION: Yes Soft to palpation, No Tenderness to palpation present (GI), No Guarding due to palpation present (GI) and Yes No hepatosplenomegaly present Extremity: COMMON NORMALS: normal to inspection, capillary refill normal, no clubbing, cyanosis or edema, no calf tenderness and no pedal edema Neuro: SENSORIUM/ORIENTATION: Yes oriented to person, Yes oriented to place and Yes oriented to time Skin: COMMON NORMALS: no rashes or lesions noted GENERAL SKIN EXAM: no rashes or lesions noted Course 2 Vital Signs: Vital signs: Vital Signs Temperature 97.6 F 08/23/24 12:07 Pulse Rate 52 L 08/23/24 12:07 Respiratory Rate 17 08/23/24 12:07 Blood Pressure 111/61 08/23/24 12:07 Pulse Oximetry 99 08/23/24 12:07 Oxygen Delivery Me thod Room Air 08/23/24 12:07 MDM - Nausea/Vomiting/Diarrhea Medical Decision Making Sharply positive Hemoccult stool. Care signed out to Dr. Dunham at change of shift. See final notes for diagnosis and disposition. Care transferred over to myself at shift change, all lab work was reviewed as well as CT scan showed segmental colitis, INR was 3.8, potassium 3.1, Dr Jaden Iyer is consulted who agreed to place patient in [facility] for further evaluation treatment. Lab Data 08/23/24 05:28 08/23/24 05:28 Radiology Impressions Abdomen/Pelvis CT 08/21/24 16:43 IMPRESSION: Findings consistent with acute segmental colitis involving the right colon. Chest X-Ray 08/22/24 07:05 IMPRESSION: No acute cardiopulmonary disease. Laboratory Results WBC 10.27 10^3/uL (3.29-11.43) 08/21/24 15:48 RBC 4.19 10^6/uL (3.85-5.65) 08/21/24 15:48 Hgb 12.20 g/dL (11.27-16.99) 08/21/24 15:48 Hct 38.6 % (36-47) 08/21/24 15:48 MCV 92.1 fl (85-98) 08/21/24 15:48 MCH 29.1 pg (27-33) 08/21/24 15:48 MCHC 31.6 g/dL (30-55) 08/21/24 15:48 RDW 13.5 % (12.1-15.1) 08/21/24 15:48 Plt Count 310 10^3/cmm (157-399) 08/21/24 15:48 MPV 10.7 fL (7.4-10.4) H 08/21/24 15:48 Neut % (Auto) 76.5 % 08/21/24 15:48 Lymph % (Auto) 16.1 % 08/21/24 15:48 [place] % (Auto) 5.8 % 08/21/24 15:48 Eos % (Auto) 1.3 % 08/21/24 15:48 Baso % (Auto) 0.1 % 08/21/24 15:48 Neut # (Auto) 7.86 10^3/uL (1.8-7.7) H 08/21/24 15:48 Lymph # (Auto) 1.7 10^3/uL (0.8-4.8) 08/21/24 15:48 [place] # (Auto) 0.6 10^3/uL (0.2-0.9) 08/21/24 15:48 Eos # (Auto) 0.1 10^3/uL (0.0-0.8) 08/21/24 15:48 Baso # (Auto) 0.0 10^3/uL (0.0-0.1) 08/21/24 15:48 Nucleated RBC % (auto) 0 % 08/21/24 15:48 Nucleated RBCs # 0.0 /100WBC 08/21/24 15:48 PT 39.10 SECONDS (12.1-14.9) H 08/21/24 15:48 INR 3.82 (0.8-1.2) H 08/21/24 15:48 APTT 59.6 SECONDS (23.9-36.7) H 08/21/24 15:48 Sodium 140 mmol/L (136-145) 08/21/24 15:48 Potassium 3.1 mmol/L (3.5-5.1) L 08/21/24 15:48 Chloride 104 mmol/L (98-107) 08/21/24 15:48 Carbon Dioxide 26 mmol/L (22-29) 08/21/24 15:48 Anion Gap 13.1 (5-19) 08/21/24 15:48 BUN 20 mg/dL (6-20) 08/21/24 15:48 Creatinine 1.0 mg/dL (0.5-0.9) H 08/21/24 15:48 GFR Calculation 58.0 mL/min (90-130) L 08/21/24 15:48 Glucose 138 mg/dL (65-115) H 08/21/24 15:48 Calculated Osmolality 295 mOsm/kg (285-295) 08/21/24 15:48 Lactic Acid 0.8 mmol/L (0.5-2.2) 08/21/24 15:48 Calcium 9.5 mg/dL (8.5-10.5) 08/21/24 15:48 Total Bilirubin 0.2 mg/dL (0.15-1.2) 08/21/24 15:48 AST 22 U/L (0-32) 08/21/24 15:48 ALT 14 U/L (0-33) 08/21/24 15:48 Alkaline Phosphatase 88 U/L (35-105) 08/21/24 15:48 Total Protein 7.2 g/dL (6.6-8.7) 08/21/24 15:48 Albumin 4.1 g/dL (3.5-5.2) 08/21/24 15:48 Globulin 3.1 g/dL (1.3-4.6) 08/21/24 15:48 Lipase 26 U/L (13-60) 08/21/24 15:48 Urine Color Yellow (Yellow) 08/21/24 15:42 Urine Appearance Clear (CLEAR) 08/21/24 15:42 Urine pH 6.0 (5-7) 08/21/24 15:42 Ur Specific Clare 1.027 (1.005-1.030) 08/21/24 15:42 Urine Protein Negative (Negative) 08/21/24 15:42 Urine Glucose (UA) Negative (Normal) 08/21/24 15:42 Urine Ketones Trace (Negative) 08/21/24 15:42 Urine Blood 1+ (Negative) A 08/21/24 15:42 Urine Nitrate Negative (Negative) 08/21/24 15:42 Urine Bilirubin Negative (Negative) 08/21/24 15:42 Urine Urobilinogen 1.0 mg/dL (Negative) 08/21/24 15:42 Ur Leukocyte Esterase 2+ (Negative) A 08/21/24 15:42 Urine RBC 6-10 /hpf (0-2) 08/21/24 15:42 Urine WBC 51-100 /hpf (0-5) H 08/21/24 15:42 Ur Squamous Epith Cells 0-5 /hpf (0-5) 08/21/24 15:42 Calcium Oxalate Crystal 15-25 /hpf H 08/21/24 15:42 Amorphous Sediment Not Reportable 08/21/24 15:42 Urine Bacteria None seen /hpf (NONE) 08/21/24 15:42 Hyaline Casts 1.65 /lpf 08/21/24 15:42 Urine Mucus 2+ /hpf 08/21/24 15:42 Discharge Plan Discharge Patient Disposition: Admitted As Inpatient Admit Provider: Carol Shay Clinical Impression: Complaint of melena, Anticoagulation excessive Segmental colitis Qualifiers: Digestive disease complication type: without complication Qualified Code(s): K 50.10 - Crohn's disease of large intestine without complications Urinary tract infection Qualifiers: Urinary tract infection type: acute cystitis Hematuria presence: with hematuria Qualified Code(s): N30.01 - Acute cystitis with hematuria Condition: Stable Coding Level of Care Code ED [employer] Supervisor for Chg Fwd Documented by User: Arden Dunham DO 08/21/24 23:31 HPI - Nausea/Vomiting/Diarrhea 2 General: Chief complaint: Nausea/Vomiting/Diarrhea Stated complaint: abd pain Time Seen by Provider: 08/21/24 16:40 Related Data Home Medications Medication Instructions Recorded Confirmed celecoxib 200 mg capsule (Celebrex) 200 mg PO DAILY 05/04/20 08/21/24 baclofen 5 mg tablet 5 mg PO 3XD PRN Muscle Spasm 02/07/21 08/21/24 ibuprofen 800 mg tablet 800 mg PO Q8H PRN Pain 09/05/21 08/21/24 tizanidine 2 mg capsule 2 mg PO DAILY PRN Muscle Spasm 09/05/21 08/21/24 garlic 500 mg capsule 500 mg PO DAILY 07/04/22 08/21/24 lidocaine 5 % topical patch 1 patch topical DAILY 07/04/22 08/21/24 alprazolam 0.5 mg tablet 0.5 mg PO BEDTIME PRN Anxiety 08/21/24 08/21/24 hydrocodone 10 mg-acetaminophen 1 tab PO Q12H PRN Pain 08/21/24 08/21/24 325 mg tablet metoprolol tartrate 25 mg tablet 12.5 mg PO BID 08/21/24 08/21/24 montelukast 10 mg tablet 10 mg PO DAILY 08/21/24 08/21/24 warfarin 5 mg tablet 5 mg PO BID 08/21/24 08/21/24 zonisamide 100 mg capsule 200 mg PO BEDTIME 08/21/24 08/21/24 Allergies Allergy/AdvReac Type Severity Reaction Status Date / Time atorvastatin [From Lipitor] Allergy myalgias Verified 08/21/24 21:16 fexofenadine Allergy ADR-Anxiety Verified 08/21/24 21:16 gabapentin Allergy myalgias Verified 08/21/24 21:16 oxycodone Allergy ITCHING Verified 08/21/24 15:33 AND NERVOUSNESS tramadol Allergy Unknown Verified 08/21/24 15:33 PFSH ED 2 PFSH: Medical History Chronic back pain s/p back surgeries 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 Family History Father , AT 93 Heart attack Mother , AT AGE 57 Diabetes Heart attack Other CAD (coronary artery disease) Congestive heart failure (CHF) Hypertension Stroke Social History Smoking and tobacco/nicotine status: never used tobacco/nicotine Alcohol intake: never Substance/Drug Use: never Marital status: Current occupational status: employed Course 2 Vital Signs: Vital signs: Vital Signs Temperature 97.6 F 08/23/24 12:07 Pulse Rate 52 L 08/23/24 12:07 Respiratory Rate 17 08/23/24 12:07 Blood Pressure 111/61 08/23/24 12:07 Pulse Oximetry 99 08/23/24 12:07 Oxygen Delivery Me thod Room Air 08/23/24 12:07 MDM - Nausea/Vomiting/Diarrhea Medical Decision Making Care transferred over to myself at shift change, all lab work was reviewed as well as CT scan showed segmental colitis, INR was 3.8, potassium 3.1, Dr Jaden Iyer is consulted who agreed to place patient in [facility] for further evaluation treatment. Lab Data 08/23/24 05:28 08/23/24 05:28 Radiology Impressions Abdomen/Pelvis CT 08/21/24 16:43 IMPRESSION: Findings consistent with acute segmental colitis involving the right colon. Chest X-Ray 08/22/24 07:05 IMPRESSION: No acute cardiopulmonary disease. Laboratory Results WBC 10.27 10^3/uL (3.29-11.43) 08/21/24 15:48 RBC 4.19 10^6/uL (3.85-5.65) 08/21/24 15:48 Hgb 12.20 g/dL (11.27-16.99) 08/21/24 15:48 Hct 38.6 % (36-47) 08/21/24 15:48 MCV 92.1 fl (85-98) 08/21/24 15:48 MCH 29.1 pg (27-33) 08/21/24 15:48 MCHC 31.6 g/dL (30-55) 08/21/24 15:48 RDW 13.5 % (12.1-15.1) 08/21/24 15:48 Plt Count 310 10^3/cmm (157-399) 08/21/24 15:48 MPV 10.7 fL (7.4-10.4) H 08/21/24 15:48 Neut % (Auto) 76.5 % 08/21/24 15:48 Lymph % (Auto) 16.1 % 08/21/24 15:48 [place] % (Auto) 5.8 % 08/21/24 15:48 Eos % (Auto) 1.3 % 08/21/24 15:48 Baso % (Auto) 0.1 % 08/21/24 15:48 Neut # (Auto) 7.86 10^3/uL (1.8-7.7) H 08/21/24 15:48 Lymph # (Auto) 1.7 10^3/uL (0.8-4.8) 08/21/24 15:48 [place] # (Auto) 0.6 10^3/uL (0.2-0.9) 08/21/24 15:48 Eos # (Auto) 0.1 10^3/uL (0.0-0.8) 08/21/24 15:48 Baso # (Auto) 0.0 10^3/uL (0.0-0.1) 08/21/24 15:48 Nucleated RBC % (auto) 0 % 08/21/24 15:48 Nucleated RBCs # 0.0 /100WBC 08/21/24 15:48 PT 39.10 SECONDS (12.1-14.9) H 08/21/24 15:48 INR 3.82 (0.8-1.2) H 08/21/24 15:48 APTT 59.6 SECONDS (23.9-36.7) H 08/21/24 15:48 Sodium 140 mmol/L (136-145) 08/21/24 15:48 Potassium 3.1 mmol/L (3.5-5.1) L 08/21/24 15:48 Chloride 104 mmol/L (98-107) 08/21/24 15:48 Carbon Dioxide 26 mmol/L (22-29) 08/21/24 15:48 Anion Gap 13.1 (5-19) 08/21/24 15:48 BUN 20 mg/dL (6-20) 08/21/24 15:48 Creatinine 1.0 mg/dL (0.5-0.9) H 08/21/24 15:48 GFR Calculation 58.0 mL/min (90-130) L 08/21/24 15:48 Glucose 138 mg/dL (65-115) H 08/21/24 15:48 Calculated Osmolality 295 mOsm/kg (285-295) 08/21/24 15:48 Lactic Acid 0.8 mmol/L (0.5-2.2) 08/21/24 15:48 Calcium 9.5 mg/dL (8.5-10.5) 08/21/24 15:48 Total Bilirubin 0.2 mg/dL (0.15-1.2) 08/21/24 15:48 AST 22 U/L (0-32) 08/21/24 15:48 ALT 14 U/L (0-33) 08/21/24 15:48 Alkaline Phosphatase 88 U/L (35-105) 08/21/24 15:48 Total Protein 7.2 g/dL (6.6-8.7) 08/21/24 15:48 Albumin 4.1 g/dL (3.5-5.2) 08/21/24 15:48 Globulin 3.1 g/dL (1.3-4.6) 08/21/24 15:48 Lipase 26 U/L (13-60) 08/21/24 15:48 Urine Color Yellow (Yellow) 08/21/24 15:42 Urine Appearance Clear (CLEAR) 08/21/24 15:42 Urine pH 6.0 (5-7) 08/21/24 15:42 Ur Specific [place] 1.027 (1.005-1.030) 08/21/24 15:42 Urine Protein Negative (Negative) 08/21/24 15:42 Urine Glucose (UA) Negative (Normal) 08/21/24 15:42 Urine Ketones Trace (Negative) 08/21/24 15:42 Urine Blood 1+ (Negative) A 08/21/24 15:42 Urine Nitrate Negative (Negative) 08/21/24 15:42 Urine Bilirubin Negative (Negative) 08/21/24 15:42 Urine Urobilinogen 1.0 mg/dL (Negative) 08/21/24 15:42 Ur Leukocyte Esterase 2+ (Negative) A 08/21/24 15:42 Urine RBC 6-10 /hpf (0-2) 08/21/24 15:42 Urine WBC 51-100 /hpf (0-5) H 08/21/24 15:42 Ur Squamous Epith Cells 0-5 /hpf (0-5) 08/21/24 15:42 Calcium Oxalate Crystal 15-25 /hpf H 08/21/24 15:42 Amorphous Sediment Not Reportable 08/21/24 15:42 Urine Bacteria None seen /hpf (NONE) 08/21/24 15:42 Hyaline Casts 1.65 /lpf 08/21/24 15:42 Urine Mucus 2+ /hpf 08/21/24 15:42 All radiology interpretation(s) finalized by discharge Discharge Plan Discharge Patient Disposition: Admitted As Inpatient Admit Provider: Carol Shay Clinical Impression: Complaint of melena, Anticoagulation excessive Segmental colitis Qualifiers: Digestive disease complication type: without complication Qualified Code(s): K 50.10 - Crohn's disease of large intestine without complications Urinary tract infection Qualifiers: Urinary tract infection type: acute cystitis Hematuria presence: with hematuria Qualified Code(s): N30.01 - Acute cystitis with hematuria Condition: Stable Coding Level of Care Code ED [employer] Supervisor for Josie Carias
[2024-08-21 16:42] LABS: Add Urine Microscopic? YES; Bacteria Urine None Seen /hpf; Hyaline Casts Urine 1.65 /lpf; Squamous Epithelial Cell Urine 0-5 /hpf (0-5); WBC Urine 51-100 /hpf (0-5)
--- NOTE | 2024-08-21 16:43 | CTR_ITS ---
PROCEDURE INFORMATION: Exam: CT Abdomen And Pelvis With Contrast Exam date and time: 08/21/2024 5:18 PM Age: 54 years old Clinical indication: Abdominal pain; Generalized; Prior surgery; Surgery date: 6+ months; Surgery type: C section, partial hyster, lumbar fusion, ; additional info: Abd pain TECHNIQUE: Imaging protocol: Computed tomography of the abdomen and pelvis with contrast. Radiation optimization: All CT scans at this facility use at least one of these dose optimization techniques: automated exposure control; mA and/or kV adjustment per patient size (includes targeted exams where dose is matched to clinical indication); or iterative reconstruction. Contrast material: OMNIPAQUE 350; Contrast volume: 100 ml; Contrast route: INTRAVENOUS (IV); COMPARISON: CT kidney stone [id number] 08/16/2021 11:31 PM RADIATION DOSE METRICS: Total DLP (mGy-cm): 923.13 FINDINGS: Lungs: Lung bases are clear. Diaphragm: Small hiatal hernia. Liver: Liver is unremarkable. No mass or enlargement detected. Gallbladder and biliary ducts: Normal. No calcified stones. No ductal dilation. Pancreas: Unremarkable. Main pancreatic duct is not significantly dilated. Spleen: Normal. No splenomegaly. Adrenal glands: Normal. No mass. Kidneys and ureters: Normal. No hydronephrosis. Stomach and bowel: There are moderate inflammatory bowel changes involving the right colon with mural thickening/edema and submucosal enhancement resulting in mural stratification and target like appearance of the colonic wall, along with indistinct pericolonic fat stranding consistent with acute segmental colitis. Consider infectious etiology such as C diff colitis. Appendix: No evidence of appendicitis. Intraperitoneal space: Unremarkable. No free air. No significant fluid collection. Vasculature: Unremarkable. No abdominal aortic aneurysm. Lymph nodes: Unremarkable. No enlarged lymph nodes. Urinary bladder: Unremarkable as visualized. Reproductive: Uterus has been removed. Bones/joints: Prior surgery with arthrodesis extending from L4 through S1. Hardware appears intact. Anatomic alignment is maintained. There are syndesmotic screws placed across the right sacroiliac joint. There are moderate degenerative changes L2-L3. No acute bony abnormalities. Soft tissues: Unremarkable. CT/CT abdomen pelvis w con* [id number] IMPRESSION: Findings consistent with acute segmental colitis involving the right colon.
[2024-08-21 16:56] LABS: INR 3.82 (0.8-1.2)
[2024-08-21 16:57] LABS: Partial Thromboplastin Time 59.6 SECONDS (23.9-36.7)
[2024-08-21 16:58] LABS: UA Slide Review UA Slide Review Perf
[2024-08-21 17:00] LABS: Add Urine Culture? Yes; Calcium Oxalate Crystals Urine 15-25 /hpf; Mucus Urine 2+ /hpf
[2024-08-21] MEDS: iohexol 350 mg/mL 500 mL Btl (per mL) IV (17:18)
[2024-08-21 17:56] VITALS: BP 139/54; PULSE 81; O2SAT 100
[2024-08-21 18:21] LABS: Lactic Sepsis W/Reflex 0.8 mmol/L (0.5-2.2)
[2024-08-21] MEDS: cefTRIAXone 1,000 mg SDV 1000 MG IVP (18:45)
[2024-08-21 19:42] VITALS: BP 115/66; PULSE 82; RESP 18; O2SAT 99
--- NOTE | 2024-08-21 20:11 | P.HP_ITS ---
Providers/Chief Complaint 2 Admitting Physician: Carol Shay MD Primary Care Provider: Dayton Kennedy DO Chief Complaint: abd pain History of Present Illness Cardiothoracic Surgeon - Dr. Ray based in [place], but Surgery was done at [facility] Plastic Fabricator - Dr. 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 Rivera's notes, shunt repair w/ Valvuloplasty/open commissurotomy for bicuspid aortic valve at age 12 and what sounds like a thoracic aneurysm repair and mechanical aortic valve replacement in 12/2023 due to [place] aortic valve failure, who presented to [facility]'s ED on 08/21/2024 with complaints of n/v/diarrhea. The patient states that, while out of town at work on 08/18/2024, ate pepperoni pizza at a truck stop around 11:30am. That afternoon, she started to experience malaise, 5 episodes of black watery diarrhea , and by evening she had 4 episodes of black emesis and chills. The next day, she was fatigued, she continued to have black watery stools (at least 4 episodes), and then the diarrhea improved by the night of 08/20 and then she started burping and passing flatus. She returned to town today, and started having bloody rust colored diarrhea with blood clots and she now had abdominal pain. She endorses palpitations, but states that she is used to it b/c it has always had it since she was a child, and she states that her Plastic Fabricator knows this. She states that her palpitations have improved since she had her surgery in 12/2023. She denies fever, dizziness, light headedness, CP, syncope, dysuria, hematuria, increased urinary urgency or frequency. In the ED, a CT abdomen and pelvis with contrast was done that was positive for acute segmental colitis involving the right colon. Review of Systems 2 Const: Reports: chills, change in appetite, fatigue and malaise; Denies: fever(s) Eyes: Denies: change in vision ENMT: Reports: nasal discharge and other (no sorethroat); Denies: odynophagia, ear or mastoid pain, ear discharge or nasal congestion Card: Reports: palpitations; Denies: chest pain, swelling of feet/ankles, lightheadedness or syncope Resp: Reports: other (no cough); Denies: dyspnea or wheezing GI: Reports: abdominal pain, nausea, vomiting, coffee ground emesis, GI cramping, belching, hematochezia and melena : Denies: difficulty voiding, dysuria, urinary frequency, urinary urgency or hematuria Musc: Reports: back pain, joint stiffness and other; Denies: joint pain Skin/Breast: Denies: rash or new lesions Neuro: Denies: headache(s) or dizziness Psych: Denies: anxiety, depression, suicidal ideation or homicidal ideation Endo: Denies: cold intolerance or heat intolerance Barney/Lymph: Reports: easy bruising and easy bleeding All/Imm: Denies: food intolerance Medications/Allergies Home Medications Medication Instructions Recorded Confirmed Last Taken Type celecoxib 200 mg capsule (Celebrex) 200 mg PO DAILY 05/04/20 08/21/24 Unknown History baclofen 5 mg tablet 5 mg PO 3XD PRN Muscle Spasm 02/07/21 08/21/24 Unknown History ibuprofen 800 mg tablet 800 mg PO Q8H PRN Pain 09/05/21 08/21/24 Unknown History tizanidine 2 mg capsule 2 mg PO DAILY PRN Muscle Spasm 09/05/21 08/21/24 Unknown History garlic 500 mg capsule 500 mg PO DAILY 07/04/22 08/21/24 Unknown History lidocaine 5 % topical patch 1 patch topical DAILY 07/04/22 08/21/24 Unknown History alprazolam 0.5 mg tablet 0.5 mg PO BEDTIME PRN Anxiety 08/21/24 08/21/24 1 Day Ago History ~08/20/24 hydrocodone 10 mg-acetaminophen 1 tab PO Q12H PRN Pain 08/21/24 08/21/24 Unknown History 325 mg tablet metoprolol tartrate 25 mg tablet 12.5 mg PO BID 08/21/24 08/21/24 Unknown History montelukast 10 mg tablet 10 mg PO DAILY 08/21/24 08/21/24 Unknown History warfarin 5 mg tablet 5 mg PO BID 08/21/24 08/21/24 Unknown History zonisamide 100 mg capsule 200 mg PO BEDTIME 08/21/24 08/21/24 Unknown History Allergies Allergy/AdvReac Type Severity Reaction Status Date / Time atorvastatin [From Lipitor] Allergy myalgias Verified 08/21/24 21:16 fexofenadine Allergy ADR-Anxiety Verified 08/21/24 21:16 gabapentin Allergy myalgias Verified 08/21/24 21:16 oxycodone Allergy ITCHING Verified 08/21/24 15:33 AND NERVOUSNESS tramadol Allergy Unknown Verified 08/21/24 15:33 PFSH Acute 2 PFSH: Medical History Chronic back pain s/p back surgeries History of sacroiliac joint dysfunction s/p SI joint fusion in 2016 Recurrent UTI Hx of aortic valve disorder Aortic stenosis Congenital heart disease Surgical History History of partial hysterectomy History of delivery History of open heart surgery H/O foot surgery S/P lumbar fusion back stimulator placed in 2021. Family History Father , AT 93 Heart attack Mother , AT AGE 57 Diabetes Heart attack Other CAD (coronary artery disease) Congestive heart failure (CHF) Hypertension Stroke Social History Smoking and tobacco/nicotine status: never used tobacco/nicotine Alcohol intake: never Substance/Drug Use: never Marital status: Current occupational status: employed Vitals/I&O/Wt Last Vital Signs Temp 98.0 F 08/21/24 15:31 Pulse 82 08/21/24 19:42 Resp 18 08/21/24 19:42 BP 115/66 08/21/24 19:42 Pulse Ox 99 08/21/24 19:42 O2 Del Method Room Air 08/21/24 19:42 08/21/24 08/21/24 08/21/24 06:59 14:59 22:59 Intake Total 0 / 0 Balance 0 / 0 Weight last 48 hrs Weight 105.687 kg Physical Exam 2 Const: GENERAL APPEARANCE: cooperative; not comfortable ORIENTATION/CONSCIOUSNESS: Yes awake, Yes oriented to person, Yes oriented to place and Yes oriented to time HENMT: HEAD & SCALP: normocephalic and atraumatic NOSE: Normal external nose present EXTERNAL EAR: Yes external ears normal MOUTH: Normal oral and palatal mucosa present THROAT: posterior oropharynx normal Eye: CONJUNCTIVA: Yes conjunctivae normal PUPIL: Yes Equal, round and reactive pupils present EOM: No EOM abnormal Neck/C-Spine: GENERAL: Yes normal visual inspection and Yes trachea midline THYROID: Thyroid normal CAROTIDS: No bruit CERVICAL SPINE: Yes cervical ROM normal Lymph: OTHER: No cervical or supraclavicular LAD Resp: OTHER: CTAB w/ no w/r/r Cardio: OTHER: RRR, 2/6 systolic murmur in the LLSB, aortic valve click appreciated. 2+ radial and DP pulses. GI: OTHER: BS+, Tenderness to palpation in the Epigastrium RUQ, LLQ and hypogastrium Extremity: GENERAL: No clubbing, No cyanosis and No edema Neuro: COMMON NORMALS: patient oriented x3, CN's II-XII intact bilaterally, moves all extremities, no focal motor deficits and deep tendon reflexes 2+ bilaterally; negative for no sensory deficits noted Psych: APPEARANCE: Yes grossly normal ATTITUDE: Yes calm and Yes engaged ACTIVITY/MOTOR BEHAVIOR: Yes appropriate eye contact SPEECH: Yes normal speech MOOD & AFFECT: Yes euthymic mood THOUGHT PROCESS: Normal thought process present THOUGHT CONTENT: Yes Normal thought content present A TTENTION/CONCENTRATION: Yes attention grossly intact MEMORY/COGNITION: Yes memory grossly intact Skin: GENERAL SKIN EXAM: no rashes or lesions noted Data 08/22/24 05:38 08/22/24 05:38 Micro: Microbiology 08/21/24 18:57 Blood Culture - Preliminary Blood SPECIMEN COLLECTED 08/21/24 18:55 Blood Culture - Preliminary Blood SPECIMEN COLLECTED A&P Assessment and plan (1) Segmental colitis: Qualifiers: Digestive disease complication type: without complication Qualified Code(s): K50.10 - Crohn's disease of large intestine without complications (2) Complaint of melena: (3) Acute blood loss anemia: Plan 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 Rivera's notes, shunt repair w/ Valvuloplasty/open commissurotomy for bicuspid aortic valve at age 12 and what sounds like a thoracic aneurysm repair and mechanical aortic valve replacement in 12/2023 due to [place] aortic valve failure, who presented to [facility]'s ED on 08/21/2024 with complaints of n/v/diarrhea since 08/18/2024. #R. colon segmental colitis #Abdominal pain - s/p Ceftriaxone 1g in the ED. Gave another 1g Ceftriaxone x1 on admission -Continue 2 g ceftriaxone and Flagyl. - Pain control w/ her home opiates -I have also ordered 2 L over 10 hours. #Acute blood loss anemia # Concern for acute upper GI bleed -Gen Surg consult in the a.m. - PPI bolus given on admission. PPI IV BID. A restricted figure out how to put her on a PPI drip. #Intractable nausea - Zofran IV prn #thoracic aneurysm repair and mechanical aortic valve replacement in 12/2023 #Supratherapeutic INR -I purposely did not start a heparin drip last night due to the supratherapeutic INR of 3.8 - Defer to Day hospitalist #Chronic back pain - Continue home opiates #Social issues: Her job will need to be contacted, and they will need to be informed to that she is hospitalized if she cannot be discharged by Friday08/23/2024. She will also require a return to work note. Code status: Full GI ppx: PPI DVT ppx: she is supratherapeutic at this time. Attestations 2 Medical Necessity Statement*: The patient needs to be hospitalized for greater than 2 midnights for her right sided colitis in the setting of an acute GI bleed and a history of an aortic mechanical valve. This is a very complex patient Time Spent in Patient Care: >70mins was spent on patient interview/exam, chart review, lab/imaging review, plan formulation and coordination of care. Coding Level of Care Code 72027 Diagnoses Segmental colitis K50.10 Digestive disease complication type: without complication Complaint of melena K92.1 Acute blood loss anemia D62
[2024-08-21] MEDS: ondansetron 2 mg/ML SDV 2 mL 4 MG IVP (21:04)
--- NOTE | 2024-08-21 21:43 | PC.NURSE ---
Delay in getting pt to med surg after report was given secondary to admitting doctor at bedside.
[2024-08-21 21:45] VITALS: BP 143/83; PULSE 89; RESP 20; TEMP 36.8; O2SAT 100
[2024-08-21] MEDS: baclofen 10 mg Tablet 20 MG PO (22:06)
[2024-08-21] MEDS: HYDROcodone-acetaminophen 10-325 mg Tablet 1 TAB PO (22:06)
[2024-08-21] MEDS: CELEcoxib 200 mg Capsule PO (22:06)
[2024-08-21] MEDS: ALPRAZolam 0.5 mg Tablet PO (22:06)
[2024-08-21] MEDS: zonisamide 100 MG Capsule 200 MG PO (22:06)
[2024-08-21] MEDS: tizanidine 4 mg Tablet PO (22:07)
[2024-08-21 23:29] VITALS: PULSE 64
[2024-08-21] MEDS: sodium chloride 0.9% 1,000 ML 200 ML IV (23:51)
[2024-08-21] MEDS: pantoprazole 40 mg SDV 80 MG IVP (23:53)
[2024-08-21 23:59] VITALS: BP 89/55; PULSE 62; RESP 15; TEMP 36.5; O2SAT 93
[2024-08-22] VITALS (8 sets, daily range): BP systolic 93–136; BP diastolic 49–86; PULSE 58–75; RESP 15–19; TEMP 36.4–36.8; O2SAT 94–98
[2024-08-22] MEDS: sodium chloride 0.9% 1,000 ML 200 ML IV (04:59)
[2024-08-22] MEDS: pantoprazole 40 mg SDV IVP ×2 (05:00→17:40)
[2024-08-22] MEDS: ondansetron 2 mg/ML SDV 2 mL 4 MG IVP (05:47)
[2024-08-22] MEDS: acetaminophen 325 mg Tablet 650 MG PO (05:47)
[2024-08-22 05:54] LABS: Basophils % 0.2 %; Eosinophils # 0.2 10^3/uL (0.0-0.8); Eosinophils % 1.6 %; Hematocrit 35.3 % (36-47); Lymphocytes # 2.3 10^3/uL (0.8-4.8); Lymphocytes % 23.3 %; Mean Corpuscular Hemoglobin 29.6 pg (27-33); Mean Corpuscular Volume 92.4 fl (85-98); Mean Platelet Volume 10.7 fL (7.4-10.4); Monocytes # 0.7 10^3/uL (0.2-0.9); Monocytes % 7.2 %; Neutrophils # 6.52 10^3/uL (1.8-7.7); Neutrophils % 67.5 %; Nucleated Red Blood Cells % 0 %; Platelet Count 274 10^3/cmm (157-399); Red Blood Count 3.82 10^6/uL (3.85-5.65); Red Cell Distribution Width 13.4 % (12.1-15.1); White Blood Count 9.65 10^3/uL (3.29-11.43)
[2024-08-22 06:03] LABS: INR 3.59 (0.8-1.2)
[2024-08-22 06:11] LABS: Partial Thromboplastin Time 90.3 SECONDS (23.9-36.7)
[2024-08-22 06:14] LABS: Alanine Aminotransferase 13 U/L (0-33); Albumin Level 3.8 g/dL (3.5-5.2); Alkaline Phosphatase 81 U/L (35-105); Anion Gap 14.3 (5-19); Aspartate Amino Transferase 15 U/L (0-32); Blood Urea Nitrogen 16 mg/dL (6-20); Carbon Dioxide 21 mmol/L (22-29); Chloride 108 mmol/L (98-107); Creatinine Clr Calc Pharmacy 102.7977; Globulin 2.8 g/dL (1.3-4.6); Glucose 93 mg/dL (65-115); Osmolality Calculated 291 mOsm/kg (285-295); Phosphorus 3.5 mg/dL (2.5-4.5); Potassium 3.3 mmol/L (3.5-5.1); Sodium 140 mmol/L (136-145); Total Bilirubin 0.3 mg/dL (0.15-1.2); Total Protein 6.6 g/dL (6.6-8.7)
--- NOTE | 2024-08-22 07:05 | XRR_ITS ---
PROCEDURE INFORMATION: Exam: XR Chest Exam date and time: 08/22/2024 7:37 AM Age: 54 years old Clinical indication: Shortness of breath; Additional info: Vomiting TECHNIQUE: Imaging protocol: Radiologic exam of the chest. Views: 1 view. COMPARISON: CR IR myelogram spine thorac/lumb 01/08/2021 11:25 AM FINDINGS: Tubes, catheters and devices: Median sternotomy suture wires. Lungs: Unremarkable. No consolidation. Pleural spaces: Unremarkable. No pleural effusion. No pneumothorax. Heart/Mediastinum: Unremarkable. No cardiomegaly. Bones/joints: Unremarkable. XR/XR chest 1V portable [id number] IMPRESSION: No acute cardiopulmonary disease.
[2024-08-22] MEDS: cefTRIAXone 2,000 mg SDV 2000 MG IVP (08:34)
[2024-08-22] MEDS: metroNIDAZOLE IV 500 MG/100 ML PREMIX 100 MG IV ×3 (08:35→23:08)
[2024-08-22] MEDS: metoprolol tartrate 25 mg Tablet 12.5 MG PO ×2 (08:35→17:41)
--- NOTE | 2024-08-22 11:08 | ECG_ITS ---
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 Measurements Intervals [place] Rate: 59 P: 173 [place]: 269 QRS: 51 QRSD: 101 T: 57 QT: 433 QTc: 432 Interpretive Statements SINUS RHYTHM WITH BASELINE ARTIFACT NONSPECIFIC T-WAVE ABNORMALITY No previous ECG available for comparison Electronically Signed On 08-22-2024 20:04:55 [employer]IT[employer] by Bala Valdez M.D. [email or web address]
[2024-08-22] MEDS: sucralfate 1 gm/10 mL Oral Liq UDC PO ×3 (11:30→22:01)
[2024-08-22] MEDS: flu vacc pf 24-25 (6 mos+) SYRINGE 45 MCG IM (11:30)
--- NOTE | 2024-08-22 12:48 | P.CONIM_ITS ---
Providers/Reason For Consult 2 Consulting Physician/Specialty*: Dr. 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 She was that she was having heartburn after eating pizza and then developed pain in a band across her abdomen. The pain did not radiate to her back. Flexion and the pain worse. Has made him better. She had black to rust colored stool. She reports that her abdominal pain has resolved. She takes Coumadin regularly and has a history of allergic valve replacement. CT abdomen pelvis shows segmental colitis in the ascending colon. Review of Systems 2 General: Reports: 10 or more systems reviewed and unremarkable except in HPI and below Medications/Allergies Home Medications Medication Instructions Recorded Confirmed Last Taken Type celecoxib 200 mg capsule (Celebrex) 200 mg PO DAILY 05/04/20 08/21/24 Unknown History baclofen 5 mg tablet 5 mg PO 3XD PRN Muscle Spasm 02/07/21 08/21/24 Unknown History ibuprofen 800 mg tablet 800 mg PO Q8H PRN Pain 09/05/21 08/21/24 Unknown History tizanidine 2 mg capsule 2 mg PO DAILY PRN Muscle Spasm 09/05/21 08/21/24 Unknown History garlic 500 mg capsule 500 mg PO DAILY 07/04/22 08/21/24 Unknown History lidocaine 5 % topical patch 1 patch topical DAILY 07/04/22 08/21/24 Unknown History alprazolam 0.5 mg tablet 0.5 mg PO BEDTIME PRN Anxiety 08/21/24 08/21/24 1 Day Ago History ~08/20/24 hydrocodone 10 mg-acetaminophen 1 tab PO Q12H PRN Pain 08/21/24 08/21/24 Unknown History 325 mg tablet metoprolol tartrate 25 mg tablet 12.5 mg PO BID 08/21/24 08/21/24 Unknown History montelukast 10 mg tablet 10 mg PO DAILY 08/21/24 08/21/24 Unknown History warfarin 5 mg tablet 5 mg PO BID 08/21/24 08/21/24 Unknown History zonisamide 100 mg capsule 200 mg PO BEDTIME 08/21/24 08/21/24 Unknown History Allergies Allergy/AdvReac Type Severity Reaction Status Date / Time atorvastatin [From Lipitor] Allergy myalgias Verified 08/21/24 21:16 fexofenadine Allergy ADR-Anxiety Verified 08/21/24 21:16 gabapentin Allergy myalgias Verified 08/21/24 21:16 oxycodone Allergy ITCHING Verified 08/21/24 15:33 AND NERVOUSNESS tramadol Allergy Unknown Verified 08/21/24 15:33 Current Medications Generic Name Dose Route Start Last Admin Trade Name Freq PRN Reason Stop Dose Admin Acetaminophen 650 mg 08/21/24 23:29 08/22/24 05:47 Acetaminophen 325 Mg Tablet PO 650 mg Q6H PRN Administration Mild/Mod Pain Or Temp >/= 101 Baclofen 20 mg 08/21/24 20:15 08/21/24 22:06 Baclofen 10 Mg Tablet PO 20 mg ONCE MICHAEL Administration Ceftriaxone Sodium 2,000 mg 08/22/24 08:00 08/22/24 08:34 Ceftriaxone 2,000 Mg Sdv IVP 2,000 mg Q24H MICHAEL Administration Protocol Metronidazole 500 mg in 100 mls @ 100 mls/hr 08/22/24 08:00 08/22/24 10:06 Flagyl Iv IV Infused Q8H MICHAEL Infusion Protocol Lidocaine 1 patch 08/22/24 09:00 08/22/24 10:05 Lidocaine 5% Patch TOPICAL Not Given DAILY MICHAEL Metoprolol Tartrate 12.5 mg 08/22/24 09:00 08/22/24 08:35 Metoprolol Tartrate 25 Mg Tablet PO 12.5 mg BID MICHAEL Administration Ondansetron HCl 4 mg 08/21/24 23:29 08/22/24 05:47 Ondansetron 2 Mg/Ml Sdv 2 Ml IVP 4 mg Q6H PRN Administration vomiting, or N/V if npo Pantoprazole Sodium 40 mg 08/22/24 05:00 08/22/24 05:00 Pantoprazole 40 Mg Sdv IVP 40 mg Q12H MICHAEL Administration Sucralfate 1 gm 08/22/24 11:00 08/22/24 11:30 Sucralfate 1 Gm/10 Ml Oral Liq Udc PO 1 gm Q6H MICHAEL Administration PFSH Acute 2 PFSH: Medical History Chronic back pain s/p back surgeries 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 Family History Father , AT 93 Heart attack Mother , AT AGE 57 Diabetes Heart attack Other CAD (coronary artery disease) Congestive heart failure (CHF) Hypertension Stroke Social History Smoking and tobacco/nicotine status: never used tobacco/nicotine Alcohol intake: never Substance/Drug Use: never Marital status: Current occupational status: employed Vitals/I&O/Wt Last Vital Signs Temp 97.7 F 08/22/24 12:29 Pulse 58 L 08/22/24 12:29 Resp 17 08/22/24 12:29 BP 124/85 08/22/24 12:29 Pulse Ox 97 08/22/24 12:29 O2 Del Method Room Air 08/22/24 12:29 08/21/24 08/22/24 08/22/24 22:59 06:59 14:59 Intake Total 0 / 0 1000 / 1000 1100 / 1100 Balance 0 / 0 1000 / 1000 1100 / 1100 Weight last 48 hrs Weight 237 lb 9.6 oz Weight 234 lb 1 oz Weight 233 lb Physical Exam 2 Narrative: General : Patient is well developed , no acute distress, oriented x3 Head : Normal cephalic, a-traumatic. Ears : Pinnae and external canal are normal. Hearing is normal. Eyes : PERRLA, Sclera and injection are normal. No conjunctival discharge. Nose : Mucous membranes are without erythema. Throat : buccal mucosa is normal, gums are without significant recession or hypertrophy. Lungs : Equal chest rise bilaterally, no use of accessory muscles, trachea is midline. Cor : Rate and rhythm are normal. Abdomen : Soft, ND, NT, no g/r/m Extremities : No edema, no cyanosis or clubbing, dorsalis pedis pulses are present bilaterally, non-tender to palpation of calves. Upper extremities are normal bilaterally. Back : non-tender to palpation, no CVA tenderness. Neuro : CN II - XII intact, Upper and lower extremities have equal and full strength Data 08/22/24 05:38 08/22/24 05:38 Micro: Microbiology 08/21/24 15:42 Urine Culture - Preliminary Urine,Clean Catch 08/22/24 05:42 Occult Blood (FIT) - Final Stool Routine Collection 08/21/24 18:57 Blood Culture - Preliminary Blood SPECIMEN COLLECTED 08/21/24 18:55 Blood Culture - Preliminary Blood SPECIMEN COLLECTED A&P Assessment and plan (1) GI bleed: (2) Segmental colitis: Qualifiers: Digestive disease complication type: without complication Qualified Code(s): K50.10 - Crohn's disease of large intestine without complications (3) Anticoagulation adequate with anticoagulant therapy: Plan Coumadin Plan for bowel prep tomorrow and EGD and colonoscopy on Friday The risks and benefits of the procedure, including bleeding, infection, intestinal perforation requiring surgery, missed lesion were explained to the patient. The patient is understanding of the risks and wishes to proceed. She may need FFP Friday before the procedure Medical management per hospitalist Coding Level of Care Code 07070 Diagnoses GI bleed K92.2 Segmental colitis K50.10 Digestive disease complication type: without complication Anticoagulation adequate with anticoagulant therapy Z79.01
--- NOTE | 2024-08-22 15:36 | P.PN_ITS ---
Subjective 2 Subjective: Patient was seen this morning, she denies a history of GI bleeds, she does report that she continues to have black tarry stools, denies a history of issues with Coumadin, denies any fevers, no chills, no cough, currently no abdominal pain Vitals/I&O/Wt Last Vital Signs Temp 97.7 F 08/22/24 12:29 Pulse 58 L 08/22/24 12:29 Resp 17 08/22/24 12:29 BP 124/85 08/22/24 12:29 Pulse Ox 97 08/22/24 12:29 O2 Del Method Room Air 08/22/24 12:29 08/22/24 08/22/24 08/22/24 06:59 14:59 22:59 Intake Total 1000 / 1000 1200 / 1200 Balance 1000 / 1000 1200 / 1200 Weight last 48 hrs Weight 107.774 kg Weight 106.169 kg Weight 105.687 kg Physical Exam 2 Const: COMMON NORMALS: no acute distress and patient oriented x3 Resp: COMMON NORMALS: normal respiratory effort, No retractions, No use of accessory muscles and clear to auscultation bilaterally AUSCULTATION: clear to auscultation bilaterally Cardio: COMMON NORMALS: regular rate, regular rhythm, S1 normal heart sound present and S2 normal heart sound present RATE: regular rate RHYTHM: r egular rhythm HEART SOUNDS: S1 normal heart sound present and S2 normal heart sound present GI: COMMON NORMALS: Normal to inspection, nondistended, normoactive bowel sounds present and non-tender Extremity: COMMON NORMALS: no pedal edema Neuro: COMMON NORMALS: patient oriented x3 Psych: COMMON NORMALS: mental status grossly normal Data 08/22/24 14:32 08/22/24 05:38 Micro: Microbiology 08/21/24 15:42 Urine Culture - Preliminary Urine,Clean Catch 08/22/24 05:42 Occult Blood (FIT) - Final Stool Routine Collection 08/21/24 18:57 Blood Culture - Preliminary Blood SPECIMEN COLLECTED 08/21/24 18:55 Blood Culture - Preliminary Blood SPECIMEN COLLECTED A&P Assessment and plan (1) Segmental colitis: Qualifiers: Digestive disease complication type: without complication Qualified Code(s): K50.10 - Crohn's disease of large intestine without complications (2) Complaint of melena: (3) Acute blood loss anemia: (4) Acute GI bleeding: (5) Anticoagulation adequate with anticoagulant therapy: (6) GI bleed: (7) Urinary tract infection: Qualifiers: Hematuria presence: with hematuria Urinary tract infection type: acute cystitis Qualified Code(s): N30.01 - Acute cystitis with hematuria Plan Sarah Monroy is a 54 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 Rivera's notes, shunt repair w/ Valvuloplasty/open commissurotomy for bicuspid aortic valve at age 12 and what sounds like a thoracic aneurysm repair and mechanical aortic valve replacement in 12/2023 due to [place] aortic valve failure, who presented to [facility]'s ED on 08/21/2024 with complaints of n/v/diarrhea since 08/18/2024. #R. colon segmental colitis -Continue Flagyl, Rocephin # Acute GI bleed, concerns for upper GI bleed with black tarry stools, coffee- ground emesis -On Coumadin at home, INR 3.59 -On Celebrex, and ibuprofen -Continue Rocephin -Continue Protonix -Continue Carafate -Monitor hemoglobin every 6 hours -Discussed risk and benefits of holding anticoagulant therapy, shared decision making, she voiced understanding, all questions answered, agreed to proceed -Continue IV fluids -Transfuse if hemoglobin less than 8 -General Surgery consulted #Acute blood loss anemia # Concern for acute upper GI bleed #Intractable nausea - Zofran IV prn #thoracic aneurysm repair and mechanical aortic valve replacement in 12/2023 #Supratherapeutic INR -Continue to monitor #Chronic back pain - Continue home opiates # History of aortic mechanical valve, on Coumadin, on hold #Social issues: Her job will need to be contacted, and they will need to be informed to that she is hospitalized if she cannot be discharged by Friday08/23/2024. She will also require a return to work note. Code status: Full GI ppx: PPI DVT ppx: she is supratherapeutic at this time. Attestations 2 Medical Necessity Statement*: Patient requires hospitalization for upper GI bleed, acute anemia Diagnoses Segmental colitis K50.10 Digestive disease complication type: without complication Complaint of melena K92.1 Acute blood loss anemia D62 Acute GI bleeding K92.2 Anticoagulation adequate with anticoagulant therapy Z79.01 GI bleed K92.2 Urinary tract infection N30.01 Hematuria presence: with hematuria Urinary tract infection type: acute cystitis
[2024-08-22 17:03] LABS: Ferritin 127 ng/mL (15-150); Iron 17 ug/dL (37-145); Percent Saturation 6.1 % (20-50); Total Iron Binding Capacity 277 mcg/dl; Unsaturated Iron Binding 260 ug/dL (112-347)
[2024-08-22 21:08] LABS: Hematocrit 30.9 % (36-47)
[2024-08-22] MEDS: HYDROcodone-acetaminophen 10-325 mg Tablet 1 TAB PO (21:09)
[2024-08-22] MEDS: zonisamide 100 MG Capsule 200 MG PO (21:10)
[2024-08-22] MEDS: montelukast sodium 10 mg Tablet PO (21:10)
[2024-08-22] MEDS: ALPRAZolam 0.5 mg Tablet PO (21:10)
[2024-08-22] MEDS: tizanidine 4 mg Tablet 2 MG PO (21:10)
[2024-08-22] MEDS: baclofen 10 mg Tablet 20 MG PO (21:11)
[2024-08-23] VITALS (9 sets, daily range): BP systolic 96–120; BP diastolic 55–66; PULSE 52–64; RESP 17–18; TEMP 36.3–36.8; O2SAT 94–99
[2024-08-23] MEDS: sucralfate 1 gm/10 mL Oral Liq UDC PO ×4 (05:30→23:00)
[2024-08-23] MEDS: pantoprazole 40 mg SDV IVP ×2 (05:30→16:22)
[2024-08-23 05:53] LABS: Basophils % 0.3 %; Eosinophils # 0.1 10^3/uL (0.0-0.8); Eosinophils % 2.1 %; Hematocrit 30.5 % (36-47); Lymphocytes # 1.8 10^3/uL (0.8-4.8); Lymphocytes % 27.1 %; Mean Corpuscular HGB Conc 31.1 g/dL (30-55); Mean Corpuscular Hemoglobin 28.8 pg (27-33); Mean Corpuscular Volume 92.4 fl (85-98); Monocytes # 0.4 10^3/uL (0.2-0.9); Monocytes % 6.6 %; Neutrophils # 4.27 10^3/uL (1.8-7.7); Neutrophils % 63.6 %; Nucleated Red Blood Cells % 0 %; Platelet Count 225 10^3/cmm (157-399); Red Cell Distribution Width 13.6 % (12.1-15.1); White Blood Count 6.71 10^3/uL (3.29-11.43)
[2024-08-23 06:05] LABS: INR 2.62 (0.8-1.2)
[2024-08-23 06:14] LABS: Alanine Aminotransferase 11 U/L (0-33); Albumin Level 3.2 g/dL (3.5-5.2); Alkaline Phosphatase 66 U/L (35-105); Anion Gap 12.1 (5-19); Aspartate Amino Transferase 14 U/L (0-32); Blood Urea Nitrogen 10 mg/dL (6-20); Calcium 7.9 mg/dL (8.5-10.5); Carbon Dioxide 23 mmol/L (22-29); Chloride 110 mmol/L (98-107); Creatinine Clr Calc Pharmacy 116.7641; Globulin 2.1 g/dL (1.3-4.6); Glomerular Filtration Rate 87.5 mL/min (90-130); Glucose 108 mg/dL (65-115); Magnesium 1.8 mg/dL (1.7-2.3); Osmolality Calculated 294 mOsm/kg (285-295); Phosphorus 2.7 mg/dL (2.5-4.5); Potassium 3.1 mmol/L (3.5-5.1); Sodium 142 mmol/L (136-145); Total Bilirubin 0.2 mg/dL (0.15-1.2); Total Protein 5.3 g/dL (6.6-8.7)
--- NOTE | 2024-08-23 06:41 | P.PN_ITS ---
Subjective 2 Subjective: Patient seen and examined. No BM in the last 24 hours. No nausea or vomiting Vitals/I&O/Wt Last Vital Signs Temp 97.7 F 08/24/24 18:54 Pulse 74 08/24/24 18:54 Resp 15 08/24/24 18:54 BP 151/79 08/24/24 18:54 Pulse Ox 97 08/24/24 18:54 O2 Del Method Room Air 08/24/24 16:00 08/24/24 08/24/24 08/25/24 14:59 22:59 06:59 Intake Total 500 / 500 336 / 836 Balance 500 / 500 336 / 836 Weight last 48 hrs Weight 231 lb 14.4 oz Physical Exam 2 Narrative: General: No acute distress, awake alert and oriented x 3 Abdomen: Soft, mild right-sided tenderness, nondistended, no guarding or rebound Data 08/24/24 08:35 08/24/24 08:35 Micro: Microbiology 08/24/24 12:36 Stool Lactoferrin - Final Stool Occult Blood (FIT) - Final A&P Assessment and plan (1) GI bleed: (2) Segmental colitis: Qualifiers: Digestive disease complication type: without complication Qualified Code(s): K50.10 - Crohn's disease of large intestine without complications (3) Anticoagulation adequate with anticoagulant therapy: Plan Bowel prep EGD and colonoscopy tomorrow The risks and benefits of the procedure, including bleeding, infection, intestinal perforation requiring surgery, missed lesion were explained to the patient. The patient is understanding of the risks and wishes to proceed. Will test coag panel tomorrow. Will likely need to transfuse FFP to get INR down to 1.5 prior to endoscopy Attestations 2 Medical Necessity Statement*: Per primary Coding Level of Care Code 47488 Diagnoses GI bleed K92.2 Segmental colitis K50.10 Digestive disease complication type: without complication Anticoagulation adequate with anticoagulant therapy Z79.01
[2024-08-23] MEDS: metroNIDAZOLE IV 500 MG/100 ML PREMIX 100 MG IV ×3 (08:44→23:01)
[2024-08-23] MEDS: cefTRIAXone 2,000 mg SDV 2000 MG IVP (08:45)
[2024-08-23] MEDS: potassium chloride ER 20 mEq Tablet 40 MEQ PO (08:46)
[2024-08-23] MEDS: metoprolol tartrate 25 mg Tablet 12.5 MG PO ×2 (08:47→17:36)
--- NOTE | 2024-08-23 10:38 | PC.CHAP ---
Pastoral Care Encounter/Spiritual Assessment Type of Contact [] Declined financial services director visit [] Patient/Family/Request visit [] Outpatient visit [] Follow-up visit [] Physician referral [] Code/Alert [x] Routine visit [] Staff referral [] Actively dying [] Patient sleeping [x] Family support [] [] Out of room [] Palliative care [] [] Receiving care in room [] Pre-surgical visit [] Trauma [] Long length of stay [] ICU visit [] Other: Relational/Emotional Strength [] Patient feels connected with others/family/visitors/staff [] Distress [] Loneliness/isolation [] Abandonment Spirituality of Patient [x] Person of Calli [x] Attends Bahai of their Calli [x] Believes in Prayer [x] Reads Bible or Scientologist materials [] There are Spiritual issues to be addressed Scroll Saw Operator Interventions [x] Prayer [x] Active listening [] Non-anxious presence [] Spiritual/emotional support [] Crisis/trauma care [] Spiritual counseling [] Bereavement support [] Provided bereavement packet [x] Provided Bible/devotional materials [] Provided toy/stuffed animal, coloring book to patient or family member [] Provided Communion [] Anointing/Lorain [] Salvation [x] Completed spiritual assessment [] Other: Impact on Illness or Injury [] Angry [] Fearful [] Anxious [] Often cries [] Exhaustion [] Unable to work [] Unable to attend scientology [] Unable to walk/stand [] Unable to read [] Unable to drive [] Unable to eat/drink [] Unable to sleep [] Unable to be with family [] Patient intubated [] Other: Summary Time spent with patient 25 min
[2024-08-23] MEDS: bisacodyl 5 mg Tablet 20 MG PO (13:11)
[2024-08-23] MEDS: magnesium citrate Btl 296 mL PO ×2 (13:20→16:23)
[2024-08-23] MEDS: montelukast sodium 10 mg Tablet PO (17:36)
--- NOTE | 2024-08-23 18:08 | PM.PN ---
Subjective Subjective: - Patient was seen this morning, no recurrent bloody or black stools -She does report that she had a colonoscopy a few months ago which was within normal limits -She denies any nausea, no vomiting, -She is receiving a bowel prep -We discussed holding anticoagulant therapy, she understands this, agrees to proceed -We discussed that as her INR remains 2.6, general surgery once INR to be 1.5, she might require FFP, discussed risk and benefits, shared decision making, she voiced understanding, agreed agreed to proceed -She tells me that the surgeon who put under mechanical aortic valve told her that she has a high flow mechanical valve, the risk of thrombosis is low she tells me -Spoke to cardiology, discussed INR goal 1.5, the possibility FFP, they advised me as patient's admitted for GI bleed, the best benefits outweigh the risk, and reasonable to proceed, and I have already spoken to the patient and extensively about this and they understand the risk benefits and agreed to proceed -Spoke to general surgery, will monitor INR tomorrow -Hemoglobin 9.5, will recheck this afternoon Vitals/I&O/Wt Last Vital Signs Temp 98.3 F 08/23/24 15:38 Pulse 61 08/23/24 15:51 Resp 17 08/23/24 15:38 BP 120/59 08/23/24 15:38 Pulse Ox 99 08/23/24 15:38 O2 Del Method Room Air 08/23/24 15:38 08/23/24 08/23/24 08/23/24 06:59 14:59 22:59 Intake Total 500 / 2820 580 / 580 100 / 680 Balance 500 / 2820 580 / 580 100 / 680 Weight last 48 hrs Weight 106.549 kg Weight 107.774 kg Weight 106.169 kg Physical Exam Const: COMMON NORMALS: no acute distress and patient oriented x3 Resp: COMMON NORMALS: normal respiratory effort, No retractions, No use of accessory muscles and clear to auscultation bilaterally AUSCULTATION: clear to auscultation bilaterally Cardio: COMMON NORMALS: regular rate, regular rhythm, S1 normal heart sound present and S2 normal heart sound present RATE: regular rate RHYTHM: regular rhythm HEART SOUNDS: S1 normal heart sound present and S2 normal heart sound present GI: COMMON NORMALS: Normal to inspection, nondistended, normoactive bowel sounds present and non-tender Extremity: COMMON NORMALS: no pedal edema Neuro: COMMON NORMALS: patient oriented x3 Psych: COMMON NORMALS: mental status grossly normal Data 08/23/24 05:28 08/23/24 05:28 Micro: Microbiology 08/21/24 15:42 Urine Culture - Final Urine,Clean Catch 08/21/24 18:57 Blood Culture - Preliminary Blood NEGATIVE TO DATE 08/21/24 18:55 Blood Culture - Preliminary Blood NEGATIVE TO DATE A&P Assessment and plan (1) Segmental colitis: Qualifiers: Digestive disease complication type: without complication Qualified Code(s): K50.10 - Crohn's disease of large intestine without complications (2) Complaint of melena: (3) Acute blood loss anemia: (4) Acute GI bleeding: (5) Anticoagulation adequate with anticoagulant therapy: (6) GI bleed: (7) Urinary tract infection: Qualifiers: Hematuria presence: with hematuria Urinary tract infection type: acute cystitis Qualified Code(s): N30.01 - Acute cystitis with hematuria Plan 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 Rivera's notes, shunt repair w/ Valvuloplasty/open commissurotomy for bicuspid aortic valve at age 12 and what sounds like a thoracic aneurysm repair and mechanical aortic valve replacement in 12/2023 due to [place] aortic valve failure, who presented to [facility]'s ED on 08/21/2024 with complaints of n/v/diarrhea since 08/18/2024. #R. colon segmental colitis -Continue Flagyl, Rocephin # Acute GI bleed, concerns for upper GI bleed with black tarry stools, coffee-ground emesis -On Coumadin at home, INR 2.66 -On Celebrex, and ibuprofen -Continue Rocephin -Continue Protonix -Continue Carafate -Monitor hemoglobin tonight -Discussed risk and benefits of holding anticoagulant therapy, shared decision making, she voiced understanding, all questions answered, agreed to proceed -Continue IV fluids -Transfuse if hemoglobin less than 8 -General Surgery consulted, n.p.o. midnight, plan for EGD colonoscopy tomorrow want the INR to be 1.5 possibility FFP, discussed with general surgery discussed with cardiology, discussed with patient, agreeable to proceed -Will likely require to be bridged after procedure depending on results #Acute blood loss anemia # Concern for acute upper GI bleed #Intractable nausea - Zofran IV prn #thoracic aneurysm repair and mechanical aortic valve replacement in 12/2023 #Supratherapeutic INR -Continue to monitor #Chronic back pain - Continue home opiates # History of aortic mechanical valve, on Coumadin, on hold #Social issues: Her job will need to be contacted, and they will need to be informed to that she is hospitalized if she cannot be discharged by Friday08/23/2024. She will also require a return to work note. Code status: Full GI ppx: PPI DVT ppx: she is supratherapeutic at this time. Attestations Medical Necessity Statement*: Patient requires hospitalization for GI bleed requiring EGD and colonoscopy, with complication mechanical aortic valve Diagnoses Segmental colitis K50.10 Digestive disease complication type: without complication Complaint of melena K92.1 Acute blood loss anemia D62 Acute GI bleeding K92.2 Anticoagulation adequate with anticoagulant therapy Z79.01 GI bleed K92.2 Urinary tract infection N30.01 Hematuria presence: with hematuria Urinary tract infection type: acute cystitis
[2024-08-23 18:30] LABS: Basophils % 0.4 %; Eosinophils # 0.2 10^3/uL (0.0-0.8); Eosinophils % 2.2 %; Hematocrit 34.6 % (36-47); Lymphocytes # 2.5 10^3/uL (0.8-4.8); Lymphocytes % 31.8 %; Mean Corpuscular HGB Conc 31.5 g/dL (30-55); Mean Corpuscular Hemoglobin 29.1 pg (27-33); Mean Corpuscular Volume 92.3 fl (85-98); Mean Platelet Volume 10.8 fL (7.4-10.4); Monocytes # 0.4 10^3/uL (0.2-0.9); Monocytes % 5.2 %; Neutrophils # 4.76 10^3/uL (1.8-7.7); Neutrophils % 60.1 %; Nucleated Red Blood Cells % 0 %; Platelet Count 281 10^3/cmm (157-399); Red Blood Count 3.75 10^6/uL (3.85-5.65); Red Cell Distribution Width 13.6 % (12.1-15.1)
[2024-08-23] MEDS: tizanidine 4 mg Tablet 2 MG PO (20:07)
[2024-08-23] MEDS: baclofen 10 mg Tablet 20 MG PO (20:07)
[2024-08-23] MEDS: zonisamide 100 MG Capsule 200 MG PO (20:08)
[2024-08-23] MEDS: HYDROcodone-acetaminophen 10-325 mg Tablet 1 TAB PO (20:08)
[2024-08-23] MEDS: ALPRAZolam 0.5 mg Tablet PO (20:08)
[2024-08-24] VITALS (10 sets, daily range): BP systolic 113–155; BP diastolic 49–89; PULSE 59–74; RESP 15–18; TEMP 36.2–36.8; O2SAT 96–99
[2024-08-24] MEDS: sucralfate 1 gm/10 mL Oral Liq UDC PO (05:28)
[2024-08-24] MEDS: pantoprazole 40 mg SDV IVP (05:28)
[2024-08-24] MEDS: metroNIDAZOLE IV 500 MG/100 ML PREMIX 100 MG IV ×2 (08:00→15:46)
[2024-08-24] MEDS: cefTRIAXone 2,000 mg SDV 2000 MG IVP (08:00)
[2024-08-24] MEDS: lidocaine 5% Patch 1 PATCH TOPICAL (08:00)
[2024-08-24] MEDS: metoprolol tartrate 25 mg Tablet 12.5 MG PO ×2 (08:01→17:58)
[2024-08-24 08:51] LABS: Basophils % 0.3 %; Eosinophils # 0.1 10^3/uL (0.0-0.8); Eosinophils % 2.4 %; Hematocrit 34.1 % (36-47); Lymphocytes # 1.7 10^3/uL (0.8-4.8); Lymphocytes % 29.7 %; Mean Corpuscular HGB Conc 32.3 g/dL (30-55); Mean Corpuscular Hemoglobin 29.6 pg (27-33); Mean Corpuscular Volume 91.7 fl (85-98); Mean Platelet Volume 10.7 fL (7.4-10.4); Monocytes # 0.3 10^3/uL (0.2-0.9); Monocytes % 4.5 %; Neutrophils % 62.9 %; Nucleated Red Blood Cells % 0 %; Platelet Count 274 10^3/cmm (157-399); Red Blood Count 3.72 10^6/uL (3.85-5.65); Red Cell Distribution Width 13.4 % (12.1-15.1); White Blood Count 5.73 10^3/uL (3.29-11.43)
[2024-08-24 09:07] LABS: INR 1.55 (0.8-1.2)
[2024-08-24 09:14] LABS: Alanine Aminotransferase 13 U/L (0-33); Albumin Level 3.8 g/dL (3.5-5.2); Alkaline Phosphatase 78 U/L (35-105); Anion Gap 16.4 (5-19); Aspartate Amino Transferase 15 U/L (0-32); Blood Urea Nitrogen 5 mg/dL (6-20); Calcium 9.1 mg/dL (8.5-10.5); Carbon Dioxide 20 mmol/L (22-29); Chloride 112 mmol/L (98-107); Creatinine Clr Calc Pharmacy 115.9653; Globulin 2.5 g/dL (1.3-4.6); Glomerular Filtration Rate 87.5 mL/min (90-130); Glucose 109 mg/dL (65-115); Osmolality Calculated 298 mOsm/kg (285-295); Phosphorus 2.6 mg/dL (2.5-4.5); Potassium 3.4 mmol/L (3.5-5.1); Sodium 145 mmol/L (136-145); Total Bilirubin 0.2 mg/dL (0.15-1.2); Total Protein 6.3 g/dL (6.6-8.7)
[2024-08-24] MEDS: sodium chloride 0.9% 500 ML 15 ML IV (10:37)
--- NOTE | 2024-08-24 10:40 | P.ANESASSM_ITS ---
Pre-Anesthetic Assessment Height/Weight: Height 1.7 m Weight 105.188 kg Temp Pulse Resp BP Pulse Ox O2 Del Method 97.9 F 60 16 150/49 96 Room Air 08/24/24 10:20 08/24/24 10:20 08/24/24 10:20 08/24/24 10:20 08/24/24 10:20 08/24/24 10:20 Preop Diagnosis: GI bleed Operation Date: 08/24/24 12:30 Proposed Procedures p EGD(Not Applicable) - Jonas Gastelum DO s Colonoscopy(Not Applicable) - Jonas Gastelum DO Familial anesthetic complications: none Was Beta Binu taken within 24 hours: Yes Was Clonidine taken within 24 hours: N/A Last intake: Intake Last Liquid Date 08/23/24 Last Liquid Time 14:30 Last Solid Date 08/23/24 Last Solid Time 02:35 Social No alcohol and No tobacco Exam alert and oriented x 3 Airway Submandibular: within normal limits Cervical ROM: within normal limits Mallampati: Class III Dentition: full Pulmonary None reported CV/HEM congential heart condition- valve replaced at age 12 and again in december. no issues since replacement None reported Hepatic None reported GI Gastroesophageal Reflux Disease Musc/skel Lower Back Pain and Osteoarthritis/DJD bad back causes numbness and tingling down left side .muscle spasms Neuropsych Anxiety Anesthetic Plan ASA status: 3 Anesthesia: Anesthesia Evaluation and MAC Medications/Allergies Home Medications Medication Instructions Recorded Confirmed Last Taken Type celecoxib 200 mg capsule (Celebrex) 200 mg PO DAILY 05/04/20 08/21/24 Unknown History baclofen 5 mg tablet 5 mg PO 3XD PRN Muscle Spasm 02/07/21 08/21/24 Unknown History ibuprofen 800 mg tablet 800 mg PO Q8H PRN Pain 09/05/21 08/21/24 Unknown History tizanidine 2 mg capsule 2 mg PO DAILY PRN Muscle Spasm 09/05/21 08/21/24 Unknown History garlic 500 mg capsule 500 mg PO DAILY 07/04/22 08/21/24 Unknown History lidocaine 5 % topical patch 1 patch topical DAILY 07/04/22 08/21/24 Unknown History alprazolam 0.5 mg tablet 0.5 mg PO BEDTIME PRN Anxiety 08/21/24 08/21/24 1 Day Ago History ~08/20/24 hydrocodone 10 mg-acetaminophen 1 tab PO Q12H PRN Pain 08/21/24 08/21/24 Unknown History 325 mg tablet metoprolol tartrate 25 mg tablet 12.5 mg PO BID 08/21/24 08/21/24 Unknown History montelukast 10 mg tablet 10 mg PO DAILY 08/21/24 08/21/24 Unknown History warfarin 5 mg tablet 5 mg PO BID 08/21/24 08/21/24 Unknown History zonisamide 100 mg capsule 200 mg PO BEDTIME 08/21/24 08/21/24 Unknown History Allergies Allergy/AdvReac Type Severity Reaction Status Date / Time atorvastatin [From Lipitor] Allergy myalgias Verified 08/21/24 21:16 fexofenadine Allergy ADR-Anxiety Verified 08/21/24 21:16 gabapentin Allergy myalgias Verified 08/21/24 21:16 oxycodone Allergy ITCHING Verified 08/21/24 15:33 AND NERVOUSNESS tramadol Allergy Unknown Verified 08/21/24 15:33 Current Medications Generic Name Dose Route Start Last Admin Trade Name Freq PRN Reason Stop Dose Admin Acetaminophen 650 mg 08/21/24 23:29 08/22/24 05:47 Acetaminophen 325 Mg Tablet PO 650 mg Q6H PRN Administration Mild/Mod Pain Or Temp >/= 101 Hydrocodone Bitart/Acetaminophen 1 tab 08/21/24 23:35 08/23/24 20:08 Hydrocodone-Acetaminophen 10-325 Mg Tablet PO 1 tab Q12H PRN Administration Pain Alprazolam 0.5 mg 08/21/24 23:35 08/23/24 20:08 Alprazolam 0.5 Mg Tablet PO 0.5 mg BEDTIME PRN Administration Anxiety Baclofen 20 mg 08/22/24 21:00 08/23/24 20:07 Baclofen 10 Mg Tablet PO 20 mg BEDTIME MICHAEL Administration Ceftriaxone Sodium 2,000 mg 08/22/24 08:00 08/24/24 08:00 Ceftriaxone 2,000 Mg Sdv IVP 2,000 mg Q24H MICHAEL Administration Protocol Metronidazole 500 mg in 100 mls @ 100 mls/hr 08/22/24 08:00 08/24/24 09:32 Flagyl Iv IV Infused Q8H MICHAEL Infusion Protocol Sodium Chloride 500 mls @ 15 mls/hr 08/24/24 10:23 08/24/24 10:37 Sodium Chloride 0.9% IV 08/25/24 10:22 15 mls/hr .Q24H PRN Administration COLONOSCOPY FLUIDS Lidocaine 1 patch 08/22/24 09:00 08/24/24 08:00 Lidocaine 5% Patch TOPICAL 1 patch DAILY MICHAEL Administration Metoprolol Tartrate 12.5 mg 08/22/24 09:00 08/24/24 08:01 Metoprolol Tartrate 25 Mg Tablet PO 12.5 mg BID MICHAEL Administration Montelukast Sodium 10 mg 08/23/24 21:00 08/23/24 17:49 Montelukast Sodium 10 Mg Tablet PO Not Given 2100 MICHAEL Ondansetron HCl 4 mg 08/21/24 23:29 08/22/24 05:47 Ondansetron 2 Mg/Ml Sdv 2 Ml IVP 4 mg Q6H PRN Administration vomiting, or N/V if npo Pantoprazole Sodium 40 mg 08/22/24 05:00 08/24/24 05:28 Pantoprazole 40 Mg Sdv IVP 40 mg Q12H MICHAEL Administration Sucralfate 1 gm 08/22/24 11:00 08/24/24 05:28 Sucralfate 1 Gm/10 Ml Oral Liq Udc PO 1 gm Q6H MICHAEL Administration Tizanidine HCl 2 mg 08/21/24 23:41 08/23/24 20:07 Tizanidine 4 Mg Tablet PO 2 mg DAILY PRN Administration Muscle Spasm Zonisamide 200 mg 08/22/24 21:00 08/23/24 20:08 Zonisamide 100 Mg Capsule PO 200 mg BEDTIME MICHAEL Administration PFS Anesthesia Medical History Chronic back pain s/p back surgeries 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 Family History Father , AT 93 Heart attack Mother , AT AGE 57 Diabetes Heart attack Other CAD (coronary artery disease) Congestive heart failure (CHF) Hypertension Stroke Social History Smoking and tobacco/nicotine status: never used tobacco/nicotine Alcohol intake: never Substance/Drug Use: never Marital status: Current occupational status: employed Data Anesthesia 08/24/24 08:35 08/24/24 08:35 Short CBC 08/22/24 08/22/24 08/23/24 Range/Units 14:32 21:00 05:28 WBC 6.71 (3.29-11.43) 10^3/uL Hgb 10.40 L 9.80 L 9.50 L (11.27-16.99) g/dL Hct 30.9 L 30.5 L (36-47) % MCV 92.4 (85-98) fl Plt Count 225 (157-399) 10^3/cmm Neut % (Auto) 63.6 % Neut # (Auto) 4.27 (1.8-7.7) 10^3/uL 08/23/24 08/24/24 Range/Units 18:22 08:35 WBC 7.90 5.73 (3.29-11.43) 10^3/uL Hgb 10.90 L 11.00 L (11.27-16.99) g/dL Hct 34.6 L 34.1 L (36-47) % MCV 92.3 91.7 (85-98) fl Plt Count 281 274 (157-399) 10^3/cmm Neut % (Auto) 60.1 62.9 % Neut # (Auto) 4.76 3.60 (1.8-7.7) 10^3/uL BMP 08/23/24 08/24/24 05:28 08:35 Sodium 142 145 Potassium 3.1 L 3.4 L Chloride 110 H 112 H Carbon Dioxide 23 20 L BUN 10 5 L Creatinine 0.7 0.7 Glucose 108 109 Calcium 7.9 L 9.1 Liver Function 08/23/24 08/24/24 Range/Units 05:28 08:35 Total Bilirubin 0.2 0.2 (0.15-1.2) mg/dL AST 14 15 (0-32) U/L ALT 11 13 (0-33) U/L Alkaline Phosphatase 66 78 (35-105) U/L Albumin 3.2 L 3.8 (3.5-5.2) g/dL Coags 08/23/24 08/24/24 05:28 08:35 PT 29.00 H 19.10 H D INR 2.62 H 1.55 H Microbiology 08/21/24 15:42 Urine Culture - Final Urine,Clean Catch Cardiac Studies: 2 Echocardiogram 08/20/23 Echocardiogram Ultrasound 05/31/20
--- NOTE | 2024-08-24 11:39 | P.PN_ITS ---
Vitals/I&O/Wt Last Vital Signs Temp 97.9 F 08/24/24 10:20 Pulse 60 08/24/24 10:20 Resp 16 08/24/24 10:20 BP 150/49 08/24/24 10:20 Pulse Ox 96 08/24/24 10:20 O2 Del Method Room Air 08/24/24 10:20 08/23/24 08/24/24 08/24/24 22:59 06:59 14:59 Intake Total 820 / 1400 100 / 1500 100 / 100 Balance 820 / 1400 100 / 1500 100 / 100 Weight last 48 hrs Weight 231 lb 14.4 oz Weight 234 lb 14.4 oz Data 08/24/24 08:35 08/24/24 08:35 Micro: Microbiology 08/21/24 15:42 Urine Culture - Final Urine,Clean Catch A&P Assessment and plan (1) GI bleed: (2) Segmental colitis: Qualifiers: Digestive disease complication type: without complication Qualified Code(s): K50.10 - Crohn's disease of large intestine without complications (3) Anticoagulation adequate with anticoagulant therapy: Plan EGD and colonoscopy The risks and benefits of the procedure, including bleeding, infection, intestinal perforation requiring surgery, missed lesion were explained to the patient. The patient is understanding of the risks and wishes to proceed. Attestations 2 Medical Necessity Statement*: Per primary Coding Level of Care Code Acute Code for [facility] Fwd Diagnoses GI bleed K92.2 Segmental colitis K50.10 Digestive disease complication type: without complication Anticoagulation adequate with anticoagulant therapy Z79.01
[2024-08-24] MEDS: EPINEPHrine 1 mg/mL INJ XX (12:25)
--- NOTE | 2024-08-24 13:05 | ANE.PACU2 ---
Inpatient post-anesthesia follow up: Airway intact: Yes Vital signs: Temperature 97.5 F Pulse Rate 63 Respiratory Rate 15 Blood Pressure 148/75 Pulse Oximetry 99 Oxygen Delivery Me thod Room Air Oxygen Flow Rate Fraction of Inspir ed Oxygen Hydration adequate: Yes Nausea and vomiting: No Pain level: 1 Mental status: Baseline
[2024-08-24 13:48] LABS: C.Diff PCR (Lab) NEGATIVE (Negative)
[2024-08-24] MEDS: methylPREDNISolone sod succ 125 mg/2 mL INJ IVP (13:50)
--- NOTE | 2024-08-24 14:38 | P.DS_ITS ---
Discharge Providers Date of Admission: 08/21/24 20:32 Date of Discharge: August 24, 2024 Attending Provider at Admission: Carol Shay MD Attending Provider at Discharge: Beto Almanza MD Primary Care Provider: Dayton Kennedy DO Diagnoses at Discharge Discharge Diagnosis (1) GI bleed: Status: Acute (2) Segmental colitis: Status: Acute Qualifiers: Digestive disease complication type: without complication Qualified Code(s): K50.10 - Crohn's disease of large intestine without complications (3) Anticoagulation adequate with anticoagulant therapy: Status: Acute Reason for Visit Reason for Visit: abd pain Hospital Course Hospital Course This is a 54-year-old female with a past medical history of congenital heart defect, with a thoracic aortic aneurysm repair, mechanical aortic valve on Coumadin therapy who presents [facility] due to nausea, vomiting, diarrhea Patient was admitted to [facility] for acute GI bleed, upper GI bleed with black tarry stools, coffee-ground emesis -Patient reports taking Celebrex daily -Also on Coumadin -Discussed morbidity and mortality associate with taking Celebrex, advised to discontinue Celebrex on discharge, do not take ibuprofen -Hemoglobin was monitored as inpatient Hemoccult stool positive -Received fluid therapy Protonix, Carafate, general surgery was consulted -Underwent EGD which showed gastritis, requiring epinephrine injection -Underwent colonoscopy with findings concerning for ulcerative colitis, status post biopsy, follow-up with general surgery -Given prednisone burst on discharge -Follow-up with general surgery as outpatient, follow-up with GI -Discharged on Protonix and Carafate -Spoke to general surgery okay to resume anticoagulation therapy tonight Due to intractable nausea, vomiting, received fluids, nausea control Patient's Coumadin was held during her hospitalization due to GI bleed as above, requirement of EGD and colonoscopy -She takes Coumadin due to aortic mechanical valve -Discharged with instructions as below -On Coumadin therapy. Bridging therapeutic Lovenox, INR to be monitored as outpatient through Dr. Kennedy's office - Please adhere to a GI soft diet, avoid NSAIDs, no Celebrex, avoid spicy foods, avoid acidic foods -Please take Protonix 40 twice daily, Carafate ? For your pain, please use pain medication sparingly, use Soma as needed as a muscle relaxer for pain -For Soma and please do not use with any other muscle relaxers, do not use with hydrocodone, do not drive or operate heavy machinery or drink while taking medication. please do not use Soma while at work or operating a vehicle -For your gastritis, please continue to monitor closely, follow-up with Dr. Gastelum ? For your possible ulcerative colitis, handout provided, monitor for black tarry stools, you might have persistent black tarry stools as you are having an active flare of ulcerative colitis, and you are on Lovenox and Coumadin. Please have your primary care provider recheck your hemoglobin possibly on Friday or sometime next week. ? For your ulcerative colitis have discharged you on a prednisone burst, please follow-up with gastroenterology in [place] ? For your Coumadin your INR on discharge is 1.55 ? Continue your home Coumadin dose 7.5 mg Tuesdays and Saturdays, 10 mg the rest of the days # Bridge with Lovenox ? Continue Lovenox 100 mg subcut every 12 hours # Continue to bridge with Lovenox until your INR is 2.50 # Once your Lovenox is 2.5 Lovenox can be discontinued # In this time that you are being bridged with Lovenox and Coumadin your INR has to be monitored very closely, as you have increased risk of bleeding, please follow-up with Dr. Kennedy on morning to recheck your INR ? Your INR will then also need to be monitored likely on Friday, July 30, and potentially daily or every other day based upon what your INR is ? The goal is to avoid supratherapeutic INR greater than 3.5 for example, while taking Lovenox due to increased risk of bleeding ? But we want your INR to be between 2.5-3.5 so you are therapeutic, with mechanical aortic valve -If you have worsening abdominal pain, bloody or black tarry stools please come back to the emergency room Physical Exam Const: COMMON NORMALS: no acute distress and patient oriented x3 Resp: COMMON NORMALS: normal respiratory effort, No retractions, No use of accessory muscles and clear to auscultation bilaterally AUSCULTATION: clear to auscultation bilaterally Cardio: COMMON NORMALS: regular rate, regular rhythm, S1 normal heart sound present and S2 normal heart sound present RATE: regular rate RHYTHM: regular rhythm HEART SOUNDS: S1 normal heart sound present and S2 normal heart sound present GI: COMMON NORMALS: Normal to inspection, nondistended, normoactive bowel sounds present and non-tender Extremity: COMMON NORMALS: no pedal edema Neuro: COMMON NORMALS: patient oriented x3 Psych: COMMON NORMALS: mental status grossly normal Discharge Data Studies Completed and Pending Completed Studies During Hospitalization Category Date Time Status CT abdomen pelvis w con* [id number] Stat Cat Scan 08/21/24 16:43 Completed CXRP [XR chest 1V portable [id number]] Routine Exams 08/22/24 07:05 Completed Pending at discharge Category Date Time Status Blood Culture Stat Lab 08/21/24 18:57 Results OVA and Parasites, Conc and PE Routine Lab 08/24/24 12:36 Received Prothrombin Time INR AM LABS Lab 08/25/24 04:00 Ordered Salmonella / Shigella / Campy Routine Lab 08/24/24 12:36 Received Pathology: Surgical [PTH] Routine Pth 08/24/24 12:41 Received Radiology Impressions Abdomen/Pelvis CT 08/21/24 16:43 IMPRESSION: Findings consistent with acute segmental colitis involving the right colon. Chest X-Ray 08/22/24 07:05 IMPRESSION: No acute cardiopulmonary disease. Laboratory Results WBC 5.73 10^3/uL (3.29-11.43) 08/24/24 08:35 RBC 3.72 10^6/uL (3.85-5.65) L 08/24/24 08:35 Hgb 11.00 g/dL (11.27-16.99) L 08/24/24 08:35 Hct 34.1 % (36-47) L 08/24/24 08:35 MCV 91.7 fl (85-98) 08/24/24 08:35 MCH 29.6 pg (27-33) 08/24/24 08:35 MCHC 32.3 g/dL (30-55) 08/24/24 08:35 RDW 13.4 % (12.1-15.1) 08/24/24 08:35 Plt Count 274 10^3/cmm (157-399) 08/24/24 08:35 MPV 10.7 fL (7.4-10.4) H 08/24/24 08:35 Neut % (Auto) 62.9 % 08/24/24 08:35 Lymph % (Auto) 29.7 % 08/24/24 08:35 [place] % (Auto) 4.5 % 08/24/24 08:35 Eos % (Auto) 2.4 % 08/24/24 08:35 Baso % (Auto) 0.3 % 08/24/24 08:35 Neut # (Auto) 3.60 10^3/uL (1.8-7.7) 08/24/24 08:35 Lymph # (Auto) 1.7 10^3/uL (0.8-4.8) 08/24/24 08:35 [place] # (Auto) 0.3 10^3/uL (0.2-0.9) 08/24/24 08:35 Eos # (Auto) 0.1 10^3/uL (0.0-0.8) 08/24/24 08:35 Baso # (Auto) 0.0 10^3/uL (0.0-0.1) 08/24/24 08:35 Nucleated RBC % (auto) 0 % 08/24/24 08:35 Nucleated RBCs # 0.0 /100WBC 08/24/24 08:35 PT 19.10 SECONDS (12.1-14.9) H D 08/24/24 08:35 INR 1.55 (0.8-1.2) H 08/24/24 08:35 APTT 90.3 SECONDS (23.9-36.7) H D 08/22/24 05:38 Sodium 145 mmol/L (136-145) 08/24/24 08:35 Potassium 3.4 mmol/L (3.5-5.1) L 08/24/24 08:35 Chloride 112 mmol/L (98-107) H 08/24/24 08:35 Carbon Dioxide 20 mmol/L (22-29) L 08/24/24 08:35 Anion Gap 16.4 (5-19) 08/24/24 08:35 BUN 5 mg/dL (6-20) L 08/24/24 08:35 Creatinine 0.7 mg/dL (0.5-0.9) 08/24/24 08:35 GFR Calculation 87.5 mL/min (90-130) L 08/24/24 08:35 Glucose 109 mg/dL (65-115) 08/24/24 08:35 Calculated Osmolality 298 mOsm/kg (285-295) H 08/24/24 08:35 Lactic Acid 0.8 mmol/L (0.5-2.2) 08/21/24 15:48 Calcium 9.1 mg/dL (8.5-10.5) 08/24/24 08:35 Phosphorus 2.6 mg/dL (2.5-4.5) 08/24/24 08:35 Magnesium 2.0 mg/dL (1.7-2.3) 08/24/24 08:35 Iron 17 ug/dL (37-145) L 08/22/24 05:38 TIBC 277 mcg/dl 08/22/24 05:38 % Saturation 6.1 % (20-50) L 08/22/24 05:38 Unsat Iron Binding 260 ug/dL (112-347) 08/22/24 05:38 Ferritin 127 ng/mL (15-150) 08/22/24 05:38 Total Bilirubin 0.2 mg/dL (0.15-1.2) 08/24/24 08:35 AST 15 U/L (0-32) 08/24/24 08:35 ALT 13 U/L (0-33) 08/24/24 08:35 Alkaline Phosphatase 78 U/L (35-105) 08/24/24 08:35 Total Protein 6.3 g/dL (6.6-8.7) L 08/24/24 08:35 Albumin 3.8 g/dL (3.5-5.2) 08/24/24 08:35 Globulin 2.5 g/dL (1.3-4.6) 08/24/24 08:35 Lipase 26 U/L (13-60) 08/21/24 15:48 Urine Color Yellow (Yellow) 08/21/24 15:42 Urine Appearance Clear (CLEAR) 08/21/24 15:42 Urine pH 6.0 (5-7) 08/21/24 15:42 Ur Specific [place] 1.027 (1.005-1.030) 08/21/24 15:42 Urine Protein Negative (Negative) 08/21/24 15:42 Urine Glucose (UA) Negative (Normal) 08/21/24 15:42 Urine Ketones Trace (Negative) 08/21/24 15:42 Urine Blood 1+ (Negative) A 08/21/24 15:42 Urine Nitrate Negative (Negative) 08/21/24 15:42 Urine Bilirubin Negative (Negative) 08/21/24 15:42 Urine Urobilinogen 1.0 mg/dL (Negative) 08/21/24 15:42 Ur Leukocyte Esterase 2+ (Negative) A 08/21/24 15:42 Urine RBC 6-10 /hpf (0-2) 08/21/24 15:42 Urine WBC 51-100 /hpf (0-5) H 08/21/24 15:42 Ur Squamous Epith Cells 0-5 /hpf (0-5) 08/21/24 15:42 Calcium Oxalate Crystal 15-25 /hpf H 08/21/24 15:42 Amorphous Sediment Not Reportable 08/21/24 15:42 Urine Bacteria None seen /hpf (NONE) 08/21/24 15:42 Hyaline Casts 1.65 /lpf 08/21/24 15:42 Urine Mucus 2+ /hpf 08/21/24 15:42 C. difficile (PCR) Negative (Negative) 08/24/24 12:36 Vitals Last Vital Signs Temp 97.5 F L 08/24/24 13:55 Pulse 59 L 08/24/24 13:55 Resp 17 08/24/24 13:55 BP 148/75 08/24/24 13:55 Pulse Ox 98 08/24/24 13:55 O2 Del Method Room Air 08/24/24 13:55 Discharge Plan Discharge Patient Disposition: Home Condition: Stable Prescriptions: New prednisone 20 mg tablet 20 mg PO BID 5 Days Qty: 10 0RF enoxaparin [Lovenox] 100 mg/mL syringe 100 mg SUBCUT Q12H 15 Days Qty: 30 0RF Rx Instructions: start pantoprazole [Protonix] 40 mg tablet,delayed release (DR/EC) 40 mg PO BID 30 Days Qty: 60 0RF sucralfate [Carafate] 1 gram tablet 1 g PO BID 28 Days Qty: 56 0RF carisoprodol [Soma] 350 mg tablet 350 mg PO DAILY PRN (Reason: muscle pain) 7 Days Qty: 7 0RF Rx Instructions: donot drive or operate heavy machinery or drink etoh or use with any other medication Continued garlic 500 mg capsule 500 mg PO DAILY lidocaine 5 % adhesive patch,medicated 1 patch topical DAILY Rx Instructions: leave on most painful area for up to 12 hrs alprazolam 0.5 mg tablet 0.5 mg PO BEDTIME PRN (Reason: Anxiety) hydrocodone-acetaminophen 10-325 mg tablet 1 tab PO Q12H PRN (Reason: Pain) zonisamide 100 mg capsule 200 mg PO BEDTIME warfarin 5 mg tablet 5 mg PO BID montelukast 10 mg tablet 10 mg PO DAILY metoprolol tartrate 25 mg tablet 12.5 mg PO BID Discontinued celecoxib [Celebrex] 200 mg capsule 200 mg PO DAILY ibuprofen 800 mg tablet 800 mg PO Q8H PRN (Reason: Pain) tizanidine 2 mg capsule 2 mg PO DAILY PRN (Reason: Muscle Spasm) baclofen 5 mg tablet 5 mg PO 3XD PRN (Reason: Muscle Spasm) Discharge Orders: Discharge Order (Routine); Ordered 08/24/24 Ordered By: Beto Almanza Referrals: Charles Elizalde MD [Referring] - 1 week Jonas Gastelum DO [Physician] - Dayton Kennedy DO [Referring] - 1 week Dayton Kennedy DO [Primary Care Provider] - (Please stop by the lab anytime morning (08/26/2024) to have INR test done. ) Discharge Diet: Cardiac Discharge Activity: Resume usual activity Patient Instructions: Sucralfate (By mouth), Prednisone (By mouth), Enoxaparin (By injection), Pantoprazole (By mouth), Gastrointestinal Bleeding (DC), GI Post Discharge Instructions w/ Anesthesia, Opioid Safety Activity Restrictions/Additional Instructions: - Please adhere to a GI soft diet, avoid NSAIDs, no Celebrex, avoid spicy foods, avoid acidic foods -Please take Protonix 40 twice daily, Carafate ? For your pain, please use pain medication sparingly, use Soma as needed as a muscle relaxer for pain -For Soma and please do not use with any other muscle relaxers, do not use with hydrocodone, do not drive or operate heavy machinery or drink while taking medication. please do not use Soma while at work or operating a vehicle -For your gastritis, please continue to monitor closely, follow-up with Dr. Gastelum ? For your possible ulcerative colitis, handout provided, monitor for black tarry stools, you might have persistent black tarry stools as you are having an active flare of ulcerative colitis, and you are on Lovenox and Coumadin. Please have your primary care provider recheck your hemoglobin possibly on Friday or sometime next week. ? For your ulcerative colitis have discharged you on a prednisone burst, please follow-up with gastroenterology in [place] ? For your Coumadin your INR on discharge is 1.55 ? Continue your home Coumadin dose 7.5 mg Tuesdays and Saturdays, 10 mg the rest of the days # Bridge with Lovenox ? Continue Lovenox 100 mg subcut every 12 hours # Continue to bridge with Lovenox until your INR is 2.50 # Once your Lovenox is 2.5 Lovenox can be discontinued # In this time that you are being bridged with Lovenox and Coumadin your INR has to be monitored very closely, as you have increased risk of bleeding, please follow-up with Dr. Kennedy on morning to recheck your INR ? Your INR will then also need to be monitored likely on Friday, July 30, and potentially daily or every other day based upon what your INR is ? The goal is to avoid supratherapeutic INR greater than 3.5 for example, while taking Lovenox due to increased risk of bleeding ? But we want your INR to be between 2.5-3.5 so you are therapeutic, with mechanical aortic valve -If you have worsening abdominal pain, bloody or black tarry stools please come back to the emergency room Discharge Attestations Time Spent in Discharge Care*: greater than 30 min Quality Metrics Clinical Quality Measures [ No reported AMI, CVA or VTE this stay] Coding Level of Care Code 05992 Total time (in minutes) for Discharge: 45 Diagnoses GI bleed K92.2 Segmental colitis K50.10 Digestive disease complication type: without complication Anticoagulation adequate with anticoagulant therapy Z79.01
[2024-08-24] MEDS: warfarin 10 mg Tablet PO (17:58)
[2024-08-24] MEDS: enoxaparin 100 mg/mL Syringe SUBCUT (18:00)
== END 2024-08-24 18:58 | disposition home or self-care (01) | DRG 378 ==
LOC: ER 20:08 → MEDSURG 20:33
PROVIDERS: Emergency Medicine; Surgery; Admitting Provider Internal Medicine; Emergency Provider Family Medicine; PCP Electrodiagnostic Medicine; Visit Provider Family Medicine
PROC: 0DJ08ZZ Inspection of Upper Intestinal Tract, Via Natural or Artificial Opening Endoscopic (ICD-10-PCS; principal; 2024-08-24 12:30)
PROC: 0DJD8ZZ Inspection of Lower Intestinal Tract, Via Natural or Artificial Opening Endoscopic (ICD-10-PCS; CPT 45378; 2024-08-24 12:30)
DX: K29.71 Gastritis, unspecified, with bleeding (principal); D62 Acute posthemorrhagic anemia; K50.10 Crohn's disease of large intestine without complications; N30.01 Acute cystitis with hematuria; G89.29 Other chronic pain; M54.9 Dorsalgia, unspecified; R79.1 Abnormal coagulation profile; K44.9 Diaphragmatic hernia without obstruction or gangrene; Z79.01 Long term (current) use of anticoagulants; Z95.2 Presence of prosthetic heart valve; Z79.891 Long term (current) use of opiate analgesic; Z90.710 Acquired absence of both cervix and uterus; Z98.1 Arthrodesis status
CPT/HCPCS: 36415; 43239; 45380; 71045; 74177; 80053; 81001; 82274; 82728; 83540; 83550; 83605; 83630; 83690; 83735; 84100; 85014; 85018; 85025; 85610; 85730; 87040; 87045; 87086; 87177; 87209; 87427; 87449; 87493; 88305; 90471; 90686; 93005; 96372; 96374; 99285; J0171; J0696; J1650; J2405; J2470; J2704; J2919; J3490; J7030; J7040